=== PATIENT | male | born 1965 | race Caucasian/White ===

== ENCOUNTER 2020-11-11 08:44 | Outpatient (REF) | payer OTHER, SELFPAY ==
[2020-11-11 09:59] LABS: Alanine Aminotransferase 29 U/L (0-40); Albumin Level 4.5 g/dL (3.5-5.0); Alkaline Phosphatase 54 U/L (39-117); Anion Gap 13 (12-20); Aspartate Amino Transferase 27 U/L (5-37); Blood Urea Nitrogen 27 mg/dL (9-16); Calcium 9.4 mg/dL (8.4-10.2); Carbon Dioxide 29 mmol/L (22-29); Chloride 103 mmol/L (96-108); Cholesterol 139 mg/dL; Estimated Glomerular Filt Rate > 60; Glucose Fasting 84 mg/dL (60-99); HDL Cholesterol 46 mg/dL; LDL Cholesterol Calculated 84 mg/dl; Potassium 4.6 mmol/l (3.3-5.1); Sodium 140 mmol/L (135-145); Total Protein 7.3 g/dL (6.5-8.0); Triglycerides 46 mg/dL
[2020-11-11 10:20] LABS: TSH reflex Free T4 1.84 mIU/mL (0.32-4.0)
== END 2020-11-11 08:45 | disposition home or self-care (01) ==
LOC: HO.LAB 08:44
PROVIDERS: PCP Nurse Practitioner Family; Visit Provider Nurse Practitioner Family
DX: I10 Essential (primary) hypertension (principal); E78.5 Hyperlipidemia, unspecified
CPT/HCPCS: 36415; 80053; 80061; 84443

== ENCOUNTER 2023-06-21 13:11 | Outpatient (AMB) | payer OTHER, SELFPAY ==
--- NOTE | 2023-06-21 13:16 | MHC.PC.OV ---
Vital Signs 06/21/23 13:17 Height 5 ft 7 in Weight 213 lb 8 oz BMI 33.4 BP 150/104 H Blood Pressure Location Lt brachial Position Sitting Pulse 73 Pulse Source Pulse Oximeter Pulse Oximetry (%) 98 Oxygen Delivery Method Room Air Intake Visit Reasons: health follow up Allergies No Known Allergies Allergy (Verified 06/21/23 13:20) Medication List - Last Reconciled 06/21/23 by DUNG Hernandez- atorvastatin 10 mg PO DAILY 90 days chlorthalidone 25 mg PO DAILY cholecalciferol (vitamin D3) 50 mcg PO DAILY lisinopril 5 mg PO DAILY sildenafil 100 mg PO DAILY PRN Tobacco use date assessed: 06/21/23 Dental Screening Dental Screen Date: 06/21/23 Did you have a dental visit in the last 12 months?: No Did you have a dental problem in the last 6 months where you did not have access to dental care?: No Was dental information given to patient?: Patient has dentist HPI health follow up HPI Details Pt is here for a PE. Due for colon screen, will refer to GI. Due for PSA, will order. Denies dribbling with urination and nocturia, does report weak stream. HTN: Blood pressure is elevated. He is no longer taking his blood pressure medication because he has not been seen since 2019. Will restart lisinopril 5mg and chlorthalidone 25mg. Pt will monitor his BP at home and contact me if it remains elevated. Denies chest pain, shortness of breath, headache, dizziness, and blurred vision. Pt also needs refills of his atorvastatin and sildenafil, will send. [facility] Social History Housing: Apartment Patient Tobacco Use Status: Former Tobacco user Quit Date: quit 12 years ago Tobacco use type: Cigarette e-Cigarette/Vaping Use: Never Used Second Hand Smoke Exposure: No service: No Current occupational status: employed Current occupation: [employer] Current occupational exposures/hazards: No Cognitive needs: No Hearing needs: No Vision needs: No Questionnaire PHQ-9 Over the last 2 weeks, how often have you been bothered by any of the following problems? 88192 - PHQ-9 Billing: Patient declined-do not bill Source: Developed by Drs. Milton Monte, Hermila Nunez, Damian Leone and colleagues, with an educational bradley from [employer] Thrive Questionnaire Date Thrive assessed: 06/21/23 I am a: Patient What is your living situation today?: I choose not to answer this question Within the past 12 months, did the food you bought not last and you didn't have the money to get more?: I choose not to answer this question Within the past 12 months, did you worry whether your food would run out before you got money to buy more?: I choose not to answer this question Do you have trouble paying for medicines?: I choose not to answer this question Do you have trouble getting transportation to medical appointments?: I choose not to answer this question Do you have trouble paying your heating and electricity bill?: I choose not to answer this question Do you have trouble taking care of your child, family member or friend?: I choose not to answer this question Do you have trouble with day-to-day activities such as bathing, preparing meals, shopping, managing finances, etc.?: I choose not to answer this question Are you currently unemployed and looking for a job?: I choose not to answer this question Are you interested in more education?: I choose not to answer this question Currently or been in a relationship where the following occur: I choose not to answer this question AUDIT C Alcohol Use Questionnaire (AUDIT-C) 1. How often do you have a drink containing alcohol?: Monthly or less 2. How many drinks containing alcohol do you have on a typical day when you are drinking?: 1 or 2 3. How often do you have six or more drinks on one occasion?: Never Total Score: 1 Score Reviewed/Action Taken: Yes SHY-7 AMB Questionnaire SHY-7 Date SHY - 7 assessed: 06/21/23 Source: Developed by Drs. Milton Monte, Hermila Nunez, Damian Leone and colleagues, with an educational bradley from [employer]. SHY-7 Assessment Billing SHY-7 Assessment Tool: pt declined-do not bill Review of Systems Const Denies chills and Denies fever(s) Eyes Denies blurry vision ENT Denies vertigo, Denies dizziness and Denies sore throat Card Denies chest pain at rest, Denies chest pain with activity, Denies diaphoresis, Denies dyspnea and Denies dyspnea on exertion Resp Denies cough, Denies dyspnea, Denies dyspnea on exertion and Denies wheezing GI Denies abdominal pain, Denies melena, Denies hematochezia, Denies constipation, Denies diarrhea and Denies loose stools Denies hematuria Musc Denies numbness and Denies tingling Skin/Breast Denies lesions Neuro Denies vertigo, Denies dizziness, Denies numbness and Denies tingling Psych Denies anxiety, Denies depression, Denies homicidal ideation, Denies suicidal ideation and Denies other (substance abuse) Aller/Immun Denies wheezing Physical exam (Primary Care) Vital Signs: Last Vital Signs Pulse 73 06/21/23 13:17 BP 150/104 H 06/21/23 13:17 Pulse Ox 98 06/21/23 13:17 Oxygen Delivery Method Room Air 06/21/23 13:17 BMI result Body Mass Index 33.4 Tobacco/Smoking Status: Tobacco use Status Tobacco use date assessed 06/21/23 06/21/23 13:26 Patient Tobacco Use Status Former Tobacco user 06/21/23 13:26 Tobacco use type Cigarette 06/21/23 13:26 e-Cigarette/Vaping Use Never Used 06/21/23 13:26 Thrive Assessment: Date of Thrive Assessment Date Thrive assessed 06/21/23 06/21/23 13:56 Currently or been in a relationship where the following occur: I choose not to answer this question Const General: cooperative Nutritional Appearance: obese Orientation/consciousness: patient oriented x3 HENMT Head: Yes normal to inspection, Yes normocephalic and Yes atraumatic Ears: TM's normal bilaterally Eyes General: appearance normal, both eyes and all related structures Alignment and Position: alignment normal and position normal Neck Neck: Yes normal visual inspection and Yes no lymphadenopathy Thyroid: Thyroid normal Resp Effort & Inspection: normal respiratory effort Auscultation: clear to auscultation bilaterally Cardio Rate: regular rate Rhythm: regular rhythm Heart sounds: S1 normal heart sound present, S2 normal heart sound present and no murmurs GI Palpation (GI): Soft to palpation and nontender Auscultation: normal bowel sounds Other: PRATEEK: prostate slightly enlarged, no nodules palpated Male General Exam: Yes normal external exam Penis: normal penis Scrotum: scrotum normal, testes descended bilaterally and no inguinal hernias Testes: no testicular mass Skin Rashes: no rashes Neuro General: patient oriented x3, moves all extremities, no focal motor deficits and deep tendon reflexes 2+ bilaterally Romberg Test: Negative Psych Appearance: grossly normal Mental Status: mental status grossly normal Speech and movement: Normal speech and movement present Affect: normal affect Attitude: cooperative Thought process: Normal thought process present Thought content: Normal thought content present Insight: Good insight present (Psych) Judgement: Good judgement present (Psych) Assessment and Plan Assessment & Plan (1) Screening for prostate cancer: Code(s): Z12.5 - Encounter for screening for malignant neoplasm of prostate Plan: PSA ordered (2) Screening for colon cancer: Code(s): Z12.11 - Encounter for screening for malignant neoplasm of colon Plan: Referred to GI Plan The patient agreed to the use of a medical billing coder for this encounter. Scribed for VINAYAK Jara by Ellen Paredes medical billing coder, on 06/21/2023 at 13:30 EST. Orders: Orders Comprehensive [place]. Panel Fast Today Z00.00 - Encounter for general adult medical examination without abnormal findings Lipid Panel Today Z00.00 - Encounter for general adult medical examination without abnormal findings TSH reflex Free T4 Today Z00.00 - Encounter for general adult medical examination without abnormal findings Complete Blood Count Auto Diff Today Z00.00 - Encounter for general adult medical examination without abnormal findings UA CC w/rflx Micro + Cult Today Z00.00 - Encounter for general adult medical examination without abnormal findings Prostate Specific Antigen Scr Today Z12.5 - Encounter for screening for malignant neoplasm of prostate Referrals Gastroenterology Referral Z12.11 - Encounter for screening for malignant neoplasm of colon Medications: New lisinopril 5 mg PO DAILY 90 tabs 1RF chlorthalidone 25 mg PO DAILY 90 tabs 1RF sildenafil administer 30 minutes to 4 hours before activity 100 mg PO DAILY PRN 30 tabs 0RF sexual activity Refilled atorvastatin 10 mg PO DAILY 90 tabs 1RF 90 days Coding Level of Care Code Est Pt Prev Care 40-64y(20108) Diagnoses Screening for prostate cancer Z12.5 Screening for colon cancer Z12.11
[2023-06-21 13:17] VITALS: BP 150/104; PULSE 73; O2SAT 98; BMI 33.4
== END 2023-06-21 13:50 | disposition home or self-care (01) ==
PROVIDERS: Visit Provider Nurse Practitioner Family
DX: Z00.00 Encounter for general adult medical examination without abnormal findings (principal); Z12.5 Encounter for screening for malignant neoplasm of prostate; Z12.11 Encounter for screening for malignant neoplasm of colon
CPT/HCPCS: 99396

== ENCOUNTER 2023-07-06 10:41 | Outpatient (REF) | payer OTHER, SELFPAY ==
[2023-07-06 13:22] LABS: MANUAL DIFF FLAG NO
[2023-07-06 13:45] LABS: Basophils Absolute Auto 0.1 X10*3/uL (0.0-0.2); Basophils Percent Auto 0.8 % (0-2); Eosinophils Absolute Auto 0.4 X10*3/uL (0.0-0.4); Eosinophils Percent Auto 5.9 % (0-4); Hemoglobin 14.9 g/dl (14.0-18.0); Imm Gran Abs Auto 0.02 X10*3/uL (0.00-0.03); Imm Gran Pct Auto 0.3 % (0.0-0.4); Lymphocytes Absolute Auto 2.1 X10*3/uL (1.2-4.9); Mean Corpuscular HGB Conc 33.9 g/dl (31.0-36.0); Mean Corpuscular Hemoglobin 30.5 pg (27.0-33.0); Mean Platelet Volume 11.6 fL (9.4-12.4); Monocytes Absolute Auto 0.5 X10*3/uL (0.1-1.2); Monocytes Percent Auto 7.4 % (2-11); Neutrophils Absolute Auto 3.5 x10*3/uL (2.0-8.3); Neutrophils Percent Auto 53.6 % (45-73); Platelet Count 240 X10*3/uL (160-400); Red Blood Count 4.89 X10*6/uL (4.60-5.80); Red Cell Distribution Width 13.4 % (11.0-16.0); White Blood Count 6.5 X10*3/uL (4.8-10.8)
[2023-07-06 14:21] LABS: Appearance Urine Hazy; Color Urine Yellow; Glucose Urine UA Negative (Negative); Leukocyte Esterase Urine Negative (Negative); Nitrite Urine Negative (Negative); PH 5.5 (5.0-9.0); Specific Gravity - Urine >= 1.030 (1.005-1.025); UMIC TRIGGER UACC YES; Urine Blood Trace (Negative); Urine Ketones Negative (Negative); Urine Protein Negative (Neg-Trace)
[2023-07-06 14:29] LABS: Alanine Aminotransferase 25 U/L (0-40); Albumin Level 3.9 g/dL (3.5-5.0); Alkaline Phosphatase 54 U/L (39-117); Anion Gap 11 (12-20); Aspartate Amino Transferase 20 U/L (5-37); Bilirubin Total 0.5 mg/dL (0.0-1.0); Blood Urea Nitrogen 23 mg/dL (9-16); Calcium 9.3 mg/dL (8.4-10.2); Carbon Dioxide 26 mmol/L (22-29); Chloride 108 mmol/L (96-108); Cholesterol 134 mg/dL (<200); Estimated Glomerular Filt Rate > 60; Glucose Fasting 111 mg/dL (60-99); HDL Cholesterol 40 mg/dL (>40); LDL Cholesterol Calculated 79 mg/dL (<100); Potassium 3.9 mmol/L (3.3-5.1); Sodium 141 mmol/L (135-145); TSH reflex Free T4 2.68 uIU/mL (0.32-4.0); Total Protein 6.6 g/dL (6.5-8.0); Triglycerides 75 mg/dL (<150)
[2023-07-06 14:31] LABS: Prostate Specific Antigen Scr 5.69 ng/mL (<0.05-4.0)
[2023-07-06 15:20] LABS: Bacteria Urine None Seen (None Seen); Hyaline Casts Urine 0-2 /LPF (0-2); RBC Urine 0-2 /HPF (0-2); Squamous Epithelial Cell Urine 0-2 /HPF (0-2); WBC Urine 0-5 /HPF (0-5)
== END 2023-07-06 10:42 | disposition home or self-care (01) ==
LOC: HO.HMGCLDS 10:41
PROVIDERS: PCP Nurse Practitioner Family; Visit Provider Nurse Practitioner Family
DX: Z00.00 Encounter for general adult medical examination without abnormal findings (principal); Z12.5 Encounter for screening for malignant neoplasm of prostate; Z13.29 Encounter for screening for other suspected endocrine disorder; Z13.0 Encounter for screening for diseases of the blood and blood-forming organs and certain disorders involving the immune mechanism; Z13.220 Encounter for screening for lipoid disorders
CPT/HCPCS: 36415; 80053; 80061; 81001; 84153; 84443; 85025

== ENCOUNTER 2023-09-19 14:54 | Outpatient (AMB) | payer OTHER, SELFPAY ==
--- NOTE | 2023-09-19 15:12 | MHC.OFFVIS ---
Intake Intake Visit Reasons: Elevated PSA Intake Note: NEW Patient presents today to established treatment for Elevated PSA: Meds- Sildenafil Allergies to Antibiotic- No Known Allergies Blood Thinner- None PSA Results- 5.69 ng/mL PVR- 0 mL Morgue Keeper Required: No Accompanied by: Self / Same As Patient Allergies anesthesia Adverse Reaction (Uncoded 10/05/23 08:26) Unknown HPI HPI Comments History of Present Illness Details Boris is a 57-year-old male who presents today to the office to establish as a new patient for an evaluation of elevated PSA. 09/19/2023? He is present today for an evaluation of elevated PSA. Laboratory review ? PSA ? 02/04/2020 was 4.08 ng/mL and on 07/06/2023 was 5.69 ng/mL. Patient states that in terms of LUTS of prostatitis he feels that the symptoms are improved on tamsulosin. Patient states that he is also concerned about a lump on the shaft of his penis. Examination: currently no abnormal findings noted on genitalia. Prostate examination: smooth, moderately enlarged prostate. Plan: Repeat PSA US retroperitoneum Follow-up in 7 weeks. PFSH Surgical History (Reviewed 10/05/23 @ 12:41 by Shimon Mukherjee [facility]) Hx of colonoscopy Social History Housing: Apartment Patient Tobacco Use Status: Former Tobacco user Quit Date: quit 12 years ago Tobacco use type: Cigarette e-Cigarette/Vaping Use: Never Used Second Hand Smoke Exposure: No service: No Current occupational status: employed Current occupation: [employer] Current occupational exposures/hazards: No Cognitive needs: No Hearing needs: No Vision needs: No Review of Systems Const All systems reviewed & are unremarkable except as noted in HPI and below Reports no additional complaints Eyes Reports no additional complaints ENT Reports no additional complaints Card Denies dyspnea Resp Denies cough and Denies dyspnea GI Reports no additional complaints Musc Reports no additional complaints Skin/Breast Denies rash and Denies unusual bruising Neuro Reports no additional complaints Psych Reports no additional complaints Endo Reports no additional complaints Esdras/Lymph Reports no additional complaints Aller/Immun Reports no additional complaints Physical Exam Const General: healthy appearing, no acute distress and well developed Orientation/consciousness: patient oriented x3 HEENT Head: Yes normocephalic and Yes atraumatic Eyes Conjunctivae: conjunctivae normal Neck Neck: Yes normal visual inspection Chest Chest palpation & inspection: normal inspection of the chest Resp Effort & Inspection: normal respiratory effort Cardio Rate: regular rate GI Inspection: Yes normal to inspection Palpation (GI): Soft to palpation Other: Prostate Exam: smooth, moderately enlarged prostate. Penis: normal penis Scrotum: scrotum normal Skin General skin exam: no rashes or lesions noted Neuro General: patient oriented x3 Extrem General: No pedal edema Psych Appearance: grossly normal Affect: normal affect Office Procedures Post Void Residual Post Residual Void Post Void Residual (PVR): 0 [id number] Void Residual by ultrasound Results AMB Urinalysis, Automated UA Leukoctes 0 Mile/uL Last Edit by TOSIN Thakur on 09/19/23 15:36 UA Nitrite Negative Last Edit by Gerardo Reyes [facility] on 09/19/23 15:36 UA Urobilinogen 0 mg/dL Last Edit by Gerardo Reyes Cortney on 09/19/23 15:36 UA Protein 15 mg/dL Last Edit by Gerardo Reyes [facility] on 09/19/23 15:36 UA pH 6.0 Last Edit by Gerardo Reyes [facility] on 09/19/23 15:36 UA Blood 0 Justin/uL Last Edit by Gerardo Reyes [facility] on 09/19/23 15:36 UA Specific Pinole 1.030 Last Edit by Gerardo Reyes [facility] on 09/19/23 15:36 UA Ketone Negative Last Edit by Gerardo Reyes Cortney on 09/19/23 15:36 UA Bilirubin 0 mg/dL Last Edit by Gerardo Reyes [facility] on 09/19/23 15:36 UA Glucose 0 mg/dL Last Edit by Gerardo Reyes [facility] on 09/19/23 15:36 Results Reviewed Results Reviewed: Laboratory Last Values Urine pH (Auto) 6.0 09/19/23 15:34 Specific Pinole (Auto) 1.030 09/19/23 15:34 Urine Protein (Auto) 15 mg/dL 09/19/23 15:34 Glucose (UA)(Auto) 0 mg/dL 09/19/23 15:34 Urine Ketones (Auto) Negative 09/19/23 15:34 Urine Blood (Auto) 0 Justin/uL 09/19/23 15:34 Urine Nitrite (Auto) Negative 09/19/23 15:34 Urine Bilirubin (Auto) 0 mg/dL 09/19/23 15:34 Urine Urobilinogen (Auto) 0 mg/dL 09/19/23 15:34 Leukocyte Esterase (Auto) 0 Mile/uL 09/19/23 15:34 Assessment & Plan Assessment & Plan (1) Elevated PSA: Code(s): R97.20 - Elevated prostate specific antigen [PSA] (2) Screening for prostate cancer: Code(s): Z12.5 - Encounter for screening for malignant neoplasm of prostate (3) BPH (benign prostatic hyperplasia): Code(s): N40.0 - Benign prostatic hyperplasia without lower urinary tract symptoms Plan Repeat PSA US retroperitoneum Follow-up in 7 weeks. Orders: Orders AMB Urinalysis Automated 09/19/23 Z13.9 - Encounter for screening, unspecified AMB Post Void Residual by ultrasound 09/19/23 N39.8 - Other specified disorders of urinary system PSA,Total (Free>4and<10) 09/19/23 R97.20 - Elevated prostate specific antigen [PSA], Z12.5 - Encounter for screening for malignant neoplasm of prostate Patient Instructions: The patient had an opportunity to ask questions regarding treatment plan. All questions were answered. Imaging, Laboratory studies and physical exam results were discussed and reviewed in detail. No major barriers to understanding were identified. The patient expressed understanding and agreement with the above treatment plan. The patient is aware they should contact our office by phone for worsening of their current condition or the appearance of new symptoms. Compliance is encouraged with any medications and followup testing that is ordered. It is a privilege to be allowed the opportunity to participate in the urologic care of your patient. If you have any questions or concerns regarding treatment for the above conditions please do not hesitate to contact me. The office telephone contact is [phone]. This note is constructed in part using voice recognition software. While every effort has been made to ensure accuracy upholstery auto trimmer errors may have been included. Yours sincerely, Shant Styles MD Coding Level of Care Code New Pt Level 4 (18612) Diagnoses Elevated PSA R97.20 Screening for prostate cancer Z12.5 BPH (benign prostatic hyperplasia) N40.0 CPT Codes Post Residual Void - PVR CPT Code: 02046-[id number] Void Residual by ultrasound ([id number])
== END 2023-09-19 15:52 | disposition home or self-care (01) ==
PROVIDERS: PCP Nurse Practitioner Family; Visit Provider Urology
DX: R97.20 Elevated prostate specific antigen [PSA] (principal); Z12.5 Encounter for screening for malignant neoplasm of prostate; N40.0 Benign prostatic hyperplasia without lower urinary tract symptoms
CPT/HCPCS: 99204

== ENCOUNTER → 2023-09-19 14:54 | Outpatient (BNVA) | payer OTHER, SELFPAY | PROVIDERS: PCP Nurse Practitioner Family; Visit Provider Urology | DX: R97.20 Elevated prostate specific antigen [PSA] (principal); Z12.5 Encounter for screening for malignant neoplasm of prostate | CPT/HCPCS: 51798; 81003 ==

== ENCOUNTER 2023-10-05 08:16 | Outpatient (AMB) | payer OTHER, SELFPAY ==
--- NOTE | 2023-10-05 08:22 | A.OFFPC_ITS ---
Vital Signs 10/05/23 08:25 Height 5 ft 7 in Weight 214 lb BMI 33.5 BP 112/82 Blood Pressure Location Rt brachial Position Sitting Pulse 57 Pulse Source Pulse Oximeter Pulse Oximetry (%) 98 Oxygen Delivery Method Room Air Intake Visit Reasons: 3 month f/u HTN Intake Note: Patient is here for HTN follow up. Allergies anesthesia Adverse Reaction (Uncoded 10/05/23 08:26) Unknown Medication List - Last Reconciled 10/05/23 by VINAYAK Hernandez atorvastatin 10 mg PO DAILY 90 days chlorthalidone 25 mg PO DAILY cholecalciferol (vitamin D3) 50 mcg PO DAILY lisinopril 5 mg PO DAILY sildenafil 100 mg PO DAILY PRN Tobacco use date assessed: 06/21/23 Dental Screening Dental Screen Date: 10/05/23 Did you have a dental visit in the last 12 months?: No Did you have a dental problem in the last 6 months where you did not have access to dental care?: No Was dental information given to patient?: Patient has dentist HPI 3 month f/u HTN HPI Details HTN: Blood pressure is managed with chlorthalidone 25mg and lisinopril 5mg. Pt has been taking his blood pressure at home and it is mostly stable with some elevated diastolic readings in the 90s. Will start amlodipine 2.5mg. Pt will continue to monitor his blood pressure at home, calling me if sustaining above 140/90. Denies chest pain, shortness of breath, headache, dizziness, and blurred vision. Pt is following up with urology. PFSH Surgical History Hx of colonoscopy Social History Housing: Apartment Patient Tobacco Use Status: Former Tobacco user Quit Date: quit 12 years ago Tobacco use type: Cigarette e-Cigarette/Vaping Use: Never Used Second Hand Smoke Exposure: No service: No Current occupational status: employed Current occupation: [email or web address] Current occupational exposures/hazards: No Cognitive needs: No Hearing needs: No Vision needs: No Questionnaire Thrive Questionnaire Date Thrive assessed: 06/21/23 AUDIT C Alcohol Use Questionnaire (AUDIT-C) 1. How often do you have a drink containing alcohol?: Never 3. How often do you have six or more drinks on one occasion?: Never Total Score: 0 Score Reviewed/Action Taken: No SHY-7 AMB Questionnaire SHY-7 Date SHY - 7 assessed: 06/21/23 Source: Developed by Drs. Milton Monte, Hermila Nunez, Damian Leone and colleagues, with an educational bradley from [employer]. Review of Systems Const Reports as per HPI Physical exam (Primary Care) Vital Signs: Last Vital Signs Pulse 57 10/05/23 08:25 BP 112/82 10/05/23 08:25 Pulse Ox 98 10/05/23 08:25 Oxygen Delivery Method Room Air 10/05/23 08:25 BMI result Body Mass Index 33.5 Tobacco/Smoking Status: Tobacco use Status Tobacco use date assessed 06/21/23 10/05/23 08:23 Patient Tobacco Use Status Former Tobacco user 10/05/23 08:23 Tobacco use type Cigarette 10/05/23 08:23 e-Cigarette/Vaping Use Never Used 10/05/23 08:23 Thrive Assessment: Date of Thrive Assessment Date Thrive assessed 06/21/23 10/05/23 08:23 Const General: cooperative Nutritional Appearance: obese Orientation/consciousness: patient oriented x3 Resp Effort & Inspection: normal respiratory effort Auscultation: clear to auscultation bilaterally Cardio Rate: regular rate Rhythm: regular rhythm Heart sounds: S1 normal heart sound present and S2 normal heart sound present Neuro General: patient oriented x3 Extrem Right lower extremity: no edema Left lower extremity: no edema Psych Appearance: grossly normal Mental Status: mental status grossly normal Speech and movement: Normal speech and movement present Affect: normal affect Attitude: cooperative Thought process: Normal thought process present Thought content: Normal thought content present Insight: Good insight present (Psych) Judgement: Good judgement present (Psych) Assessment and Plan Assessment & Plan (1) HTN (hypertension): Code(s): I10 - Essential (primary) hypertension Plan: Starting amlodipine Plan The patient agreed to the use of a adjunct faculty for medical terminology for this encounter. Scribed for VINAYAK Jara by Ellen Paredes adjunct faculty for medical terminology, on 10/05/2023 at 08:50 EST. Orders: Orders Complete Blood Count Auto Diff Today I10 - Essential (primary) hypertension Comprehensive [place]. Panel Fast Today I10 - Essential (primary) hypertension Lipid Panel Today I10 - Essential (primary) hypertension TSH reflex Free T4 Today I10 - Essential (primary) hypertension Medications: New amlodipine 2.5 mg PO DAILY 90 tabs 0RF 90 days Coding Level of Care Code Est Pt Level 3 (52673) Diagnoses HTN (hypertension) I10
[2023-10-05 08:25] VITALS: BP 112/82; PULSE 57; O2SAT 98; BMI 33.5
== END 2023-10-05 09:11 | disposition home or self-care (01) ==
PROVIDERS: PCP Nurse Practitioner Family; Visit Provider Nurse Practitioner Family
DX: I10 Essential (primary) hypertension (principal)
CPT/HCPCS: 99213

== ENCOUNTER 2023-11-14 13:44 | Outpatient (REF) | payer OTHER, SELFPAY ==
--- NOTE | ~2023-11-14 | US_ITS ---
EXAMINATION: US RETROPERITONEAL COMPLETE (RENAL) CLINICAL INFORMATION: Elevated prostate specific antigen. COMPARISON: None available. TECHNIQUE: Real-time imaging of the kidneys and bladder. Limited visualization due to bowel gas. FINDINGS: RIGHT KIDNEY: 10.9 x 5.2 x 5.7 cm (SAG x AP x TRV). No hydronephrosis. No renal calculi. Renal cortical thickness is normal. Limited visualization. LEFT KIDNEY: 11.3 x 5.1 x 4.9 cm (SAG x AP x TRV). No hydronephrosis. No renal calculi. Renal cortical thickness is normal. Limited visualization. BLADDER: Partially distended. Bilateral ureteral jets are demonstrated. Prevoid bladder volume is 200 mL. Postvoid bladder volume is 16 mL. ADDITIONAL FINDINGS: Prostate volume 52 mL, enlarged. Echogenic foci characteristic of calcifications within the prostate. US/US retroperitoneal comp IMPRESSION: 1. No hydronephrosis. No renal calculi. Limited visualization. 2. Prostate volume 52 mL, enlarged. Echogenic foci characteristic of calcifications within the prostate.
[2023-11-14 16:54] LABS: PSA,Total (Free>4and<10) 6.99 ng/mL (0.00-4.00)
[2023-11-17 10:44] LABS: Free Prostate Spec Ag 1.2 ng/mL; Percent Free Prostate Spec Ag 18 % (calc) (>25); Prostate Specific Ag Total 6.6 ng/mL (< OR = 4.0)
== END 2023-11-14 13:45 | disposition home or self-care (01) ==
LOC: HO.HMGCX 13:44
PROVIDERS: PCP Nurse Practitioner Family; Visit Provider Urology
DX: Z12.5 Encounter for screening for malignant neoplasm of prostate (principal); R97.20 Elevated prostate specific antigen [PSA]
CPT/HCPCS: 36415; 76770; 84153; 84154

== ENCOUNTER 2023-11-25 11:13 | Outpatient (AMB) | payer OTHER, SELFPAY ==
--- NOTE | 2023-11-25 11:14 | A.OFFVIS_ITS ---
Intake Intake Visit Reasons: 7w/US/PSA (set) Intake Note: Patient presents today via phone to go over US & Labs reuslts: PSA Results- 6.99 ng/mL, 11/14/2023 Meds- Sildenafil Allergies to Antibiotic- No Known Allergies Blood Thinner- None PSA Privious Results- 5.69 ng/mL, 07/06/2023 Play Therapist Required: No Accompanied by: Self / Same As Patient Allergies anesthesia Adverse Reaction (Uncoded 10/05/23 08:26) Unknown HPI HPI Comments History of Present Illness Details Boris is a 58-year-old male who presents telehealth visit for elevated PSA. He was last seen on 09/19/2023. I am discussed in repeat PSA which is 6.99. I have discussed further evaluation with Transrectal Ultrasound guided biopsy of the prostate. Discussed risks to include but not limited to pain, blood in stool, urine and semen, septicemia, need to repeat biopsy. Discussed ultrasound retroperitoneum results--kidneys within normal limits estimated prostate volume 52 mL, prostatic calcifications noted. Review of chart-- 09/19/2023? He is present today for an evaluation of elevated PSA. Laboratory review ? PSA ? 02/04/2020 was 4.08 ng/mL and on 07/06/2023 was 5.69 ng/mL. Patient states that in terms of LUTS of prostatitis he feels that the symptoms are improved on tamsulosin. Patient states that he is also concerned about a lump on the shaft of his penis. Examination: currently no abnormal findings noted on genitalia. Prostate examination: smooth, moderately enlarged prostate. Plan:Repeat PSA, US retroperitoneum, Follow-up in 7 weeks. 11/25/2023--PLAN: prostate biopsy in minor OR, Cipro 500 mg b.i.d. for 5 days to start 24 hours prior to prostate biopsy. [facility] Surgical History Hx of colonoscopy Social History Housing: Apartment Patient Tobacco Use Status: Former Tobacco user Quit Date: quit 12 years ago Tobacco use type: Cigarette e-Cigarette/Vaping Use: Never Used Second Hand Smoke Exposure: No service: No Current occupational status: employed Current occupation: [employer] Current occupational exposures/hazards: No Cognitive needs: No Hearing needs: No Vision needs: No Review of Systems Const All systems reviewed & are unremarkable except as noted in HPI and below Reports no additional complaints Eyes Reports no additional complaints ENT Reports no additional complaints Card Denies dyspnea Resp Denies cough and Denies dyspnea GI Reports no additional complaints Musc Reports no additional complaints Skin/Breast Denies rash and Denies unusual bruising Neuro Reports no additional complaints Psych Reports no additional complaints Endo Reports no additional complaints Esdras/Lymph Reports no additional complaints Aller/Immun Reports no additional complaints Results Reviewed Results Reviewed: Date of Service: 11/14/23 EXAMINATION: US RETROPERITONEAL COMPLETE (RENAL) CLINICAL INFORMATION: Elevated prostate specific antigen. COMPARISON: None available. TECHNIQUE: Real-time imaging of the kidneys and bladder. Limited visualization due to bowel gas. FINDINGS: RIGHT KIDNEY: 10.9 x 5.2 x 5.7 cm (SAG x AP x TRV). No hydronephrosis. No renal calculi. Renal cortical thickness is normal. Limited visualization. LEFT KIDNEY: 11.3 x 5.1 x 4.9 cm (SAG x AP x TRV). No hydronephrosis. No renal calculi. Renal cortical thickness is normal. Limited visualization. BLADDER: Partially distended. Bilateral ureteral jets are demonstrated. Prevoid bladder volume is 200 mL. Postvoid bladder volume is 16 mL. ADDITIONAL FINDINGS: Prostate volume 52 mL, enlarged. Echogenic foci characteristic of calcifications within the prostate. IMPRESSION: 1. No hydronephrosis. No renal calculi. Limited visualization. 2. Prostate volume 52 mL, enlarged. Echogenic foci characteristic of calcifications within the prostate. Assessment & Plan Assessment & Plan (1) Elevated PSA: Code(s): R97.20 - Elevated prostate specific antigen [PSA] (2) Screening for prostate cancer: Code(s): Z12.5 - Encounter for screening for malignant neoplasm of prostate (3) BPH (benign prostatic hyperplasia): Code(s): N40.0 - Benign prostatic hyperplasia without lower urinary tract symptoms Plan SCHEDULE PROSTATE BIOPSY IN MINOR OR. Cipro 500 mg twice a day for 5 days start 1 day prior to prostate biopsy Patient Instructions: The patient had an opportunity to ask questions regarding treatment plan. All questions were answered. Imaging, Laboratory studies and physical exam results were discussed and reviewed in detail. No major barriers to understanding were identified. The patient expressed understanding and agreement with the above treatment plan. The patient is aware they should contact our office by phone for worsening of their current condition or the appearance of new symptoms. Compliance is encouraged with any medications and followup testing that is ordered. It is a privilege to be allowed the opportunity to participate in the urologic care of your patient. If you have any questions or concerns regarding treatment for the above conditions please do not hesitate to contact me. The office telephone contact is [phone]. This note is constructed in part using voice recognition software. While every effort has been made to ensure accuracy kindergarten assistant errors may have been included. Yours sincerely, Shant Styles MD Telehealth Telehealth Location of provider rendering services: practice address Location of patient: address on file Patient Identification confirmed using: Name, : Yes Telehealth method: voice only Patient verbally consented to treatment: Yes Patient verbally consented to billing insurance company: Yes Patient informed of any privacy concerns related to visit: Yes Minutes spent on Phone/Video with Pt.: 19 Coding Level of Care Code Tele Est Pt Level 4 (45774) Diagnoses Elevated PSA R97.20 Screening for prostate cancer Z12.5 BPH (benign prostatic hyperplasia) N40.0
== END 2023-11-25 12:00 | disposition home or self-care (01) ==
LOC: HO.HUSH 11:13
PROVIDERS: PCP Nurse Practitioner Family; Visit Provider Urology
DX: R97.20 Elevated prostate specific antigen [PSA] (principal); Z12.5 Encounter for screening for malignant neoplasm of prostate; N40.0 Benign prostatic hyperplasia without lower urinary tract symptoms
CPT/HCPCS: 99214

== ENCOUNTER → 2023-11-25 11:13 | Outpatient (BNVA) | payer OTHER, SELFPAY | PROVIDERS: PCP Nurse Practitioner Family; Visit Provider Urology ==

== ENCOUNTER 2024-02-07 09:38 | Day surgery (SDC) | payer OTHER, SELFPAY ==
[2024-02-07 11:33] VITALS: BMI 35.7
[2024-02-07 11:36] VITALS: BP 120/74; PULSE 76; RESP 16; TEMP 36.1; O2SAT 93
[2024-02-07] MEDS: levoFLOXacin 500 MG TABLET PO (11:45)
--- NOTE | 2024-02-07 12:15 | MHC.SHP ---
Pre-Procedural Eval Section A - 24 Hr Update-Section A only Date of Service: 02/07/24 The patient is an INPATIENT: No The patient has been examined within 24 hours of the surgical procedure. The History & Physical has been completed within 30 days and I have reviewed it.: Yes Section B - Complete if H&P > 30 days Chief Complaint: Elevated prostate specific antigen [PSA] Details of Present Illness: 58-year-old male with elevated PSA for prostate biopsy. Allergies: Allergies Allergy/AdvReac Type Severity Reaction Status Date / Time anesthesia AdvReac Unknown Uncoded 10/05/23 08:26 Review of Systems Review of Systems Comment: 10 point review of systems negative other than noted in HPI Exam Surgical H&P Exam: Normal: HEENT, Normal: Heart, Normal: Lungs, Normal: Abdomen and Normal: Skin Plan Diagnosis/Plan: Unchanged I have reviewed the history and physical and performed a pertinent physical examination on my patient. No changes have occurred unless specified. Transrectal ultrasound-guided prostate biopsy Time Spent With Patient Time: Total time managing care of this patient today ____ minutes.
[2024-02-07 13:00] VITALS: BP 163/81; PULSE 72; RESP 16; TEMP 36.1; O2SAT 97
--- NOTE | 2024-02-07 13:02 | W.PM.OPN ---
Operative Note Operative Note Date of Service: 02/07/24 Narrative: PreOperative Diagnosis:? ? Elevated PSA Post Operative Diagnosis:??Elevated PSA Procedure:?1. Transrectal ultrasound guided biopsy of the prostate 12 core 2. Transrectal ultrasound measurement of prostate 3. Transrectal ultrasound guided pudendal nerve block Surgeon:?Dr Shant Styles Anesthesia:? Local Indications for procedure: Elevated PSA Procedure: Preoperative antibiotics confirmed. After informed consent was verified the patient was placed on the procedure table in left lateral position. Patient identity confirmed. Safety pause time-out performed. Digital rectal exam performed to dilate rectal sphincter, iodine mixed with lubricant jelly 30 cc placed per rectum. Ultrasound probe was placed per rectum. The prostate was visualized. The prostate was measured width 5.06 cm, height 3.86 cm, length 4.57 cm with a volume of 46.7 mL. An ultrasound guided pudendal nerve block was performed using 10 cc of 1% lidocaine. A 12 core biopsy was performed from the left base, left mid, left apex and right base, mid, apex 2 biopsies from each section. The ultrasound probe was removed and digital palpation of the prostate for 1-2 minutes for hemostasis was performed. The patient tolerated the procedure well. Complications: None
== END 2024-02-07 13:26 | disposition home or self-care (01) ==
PROVIDERS: PCP Nurse Practitioner Family; Visit Provider Urology
PROC: (CPT 55700; principal; 2024-02-07 11:40)
DX: R97.20 Elevated prostate specific antigen [PSA] (principal); N40.0 Benign prostatic hyperplasia without lower urinary tract symptoms
CPT/HCPCS: 55700; 76942; 88305

== ENCOUNTER → 2024-02-07 09:38 | Outpatient (BNV) | payer OTHER, SELFPAY | PROVIDERS: PCP Nurse Practitioner Family; Visit Provider Urology | DX: R97.20 Elevated prostate specific antigen [PSA] (principal) | CPT/HCPCS: 55700; 76942 ==

== ENCOUNTER 2024-03-22 08:13 | Outpatient (AMB) | payer OTHER, SELFPAY ==
--- NOTE | 2024-03-22 08:14 | A.OFFVIS_ITS ---
Intake Visit Reasons: Prostate biopsy results Intake Note: Patient presents today for Biopsy Results: Meds- Sildenafil Allergies to Antibiotic- No Known Allergies Blood Thinner- None Chief Petroleum Engineer Required: No Accompanied by: Self / Same As Patient Allergies anesthesia Adverse Reaction (Uncoded 10/05/23 08:26) Unknown Medication List - Last Reconciled 03/22/24 by Shant Styles MD amlodipine 2.5 mg PO DAILY 90 days atorvastatin 10 mg PO DAILY 90 days chlorthalidone 25 mg PO DAILY cholecalciferol (vitamin D3) 50 mcg PO DAILY ciprofloxacin HCl (Cipro) 500 mg PO BID 4 days ciprofloxacin HCl 500 mg PO BID finasteride (Proscar) 5 mg PO DAILY 90 days lisinopril 5 mg PO DAILY sildenafil 100 mg PO DAILY PRN HPI Comments Details: 03/22/2024--Boris has been followed for elevated PSA and BPH. He had prostate biopsy done, 02/07/2024-results note benign prostate tissue. PSA 11/14/2023--6.99 ng/mL. Discussed Proscar 5 mg daily. Follow-up in 8 months PSA prior. Review of chart-- 11/25/2023-- Boris is a 58-year-old male who presents telehealth visit for elevated PSA. He was last seen on 09/19/2023. I am discussed in repeat PSA which is 6.99. I have discussed further evaluation with Transrectal Ultrasound guided biopsy of the prostate. Discussed risks to include but not limited to pain, blood in stool, urine and semen, septicemia, need to repeat biopsy. Discussed ultrasound retroperitoneum results--kidneys within normal limits estimated prostate volume 52 mL, prostatic calcifications noted. 09/19/2023? He is present today for an evaluation of elevated PSA. Laboratory review ? PSA ? 02/04/2020 was 4.08 ng/mL and on 07/06/2023 was 5.69 ng/mL. Patient states that in terms of LUTS of prostatitis he feels that the symptoms are improved on tamsulosin. Patient states that he is also concerned about a lump on the shaft of his penis. Examination: currently no abnormal findings noted on genitalia. Prostate examination: smooth, moderately enlarged prostate. Plan:Repeat PSA, US retroperitoneum, Follow-up in 7 weeks. [facility] Surgical History Hx of biopsy Hx of colonoscopy Social History Housing: Apartment Patient Tobacco Use Status: Former Tobacco user Quit Date: quit 12 years ago Tobacco use type: Cigarette e-Cigarette/Vaping Use: Never Used Second Hand Smoke Exposure: No service: No Current occupational status: employed Current occupation: [employer] Current occupational exposures/hazards: No Cognitive needs: No Hearing needs: No Vision needs: No Review of Systems Const All systems reviewed & are unremarkable except as noted in HPI and below Reports no additional complaints Eyes Reports no additional complaints ENT Reports no additional complaints Card Reports no additional complaints Resp Reports no additional complaints GI Reports no additional complaints Reports as per HPI Musc Reports no additional complaints Skin/Breast Reports system reviewed and no additional complaints, except as documented Neuro Reports no additional complaints Psych Reports no additional complaints Endo Reports no additional complaints Esdras/Lymph Reports no additional complaints Aller/Immun Reports no additional complaints Results Reviewed Results Reviewed: Collected: 02/07/24 Location: [facility] Received: 02/07/24 Diagnosis A: Left base lateral: Benign prostatic tissue; negative for malignancy. B: Left base medial: Benign prostatic tissue; negative for malignancy. C: Left mid lateral: Benign prostatic tissue; negative for malignancy. D: Left mid medial: Benign prostatic tissue; negative for malignancy. E: Left apex lateral: Benign prostatic tissue; negative for malignancy. F: Left apex medial: Benign prostatic tissue; negative for malignancy. G: Right base lateral: Benign prostatic tissue; negative for malignancy. H: Right base medial: Benign prostatic tissue; negative for malignancy. I: Right mid lateral: Benign prostatic tissue; negative for malignancy. J: Right mid medial: Benign prostatic tissue; negative for malignancy. K: Right apex lateral: Prostatic stroma only; no epithelium present; negative for malignancy. L: Right apex medial: Prostatic stroma only; no epithelium present; negative for malignancy. Clinical History Elevated PSA Date of Service: 11/14/23 EXAMINATION: US RETROPERITONEAL COMPLETE (RENAL) CLINICAL INFORMATION: Elevated prostate specific antigen. COMPARISON: None available. TECHNIQUE: Real-time imaging of the kidneys and bladder. Limited visualization due to bowel gas. FINDINGS: RIGHT KIDNEY: 10.9 x 5.2 x 5.7 cm (SAG x AP x TRV). No hydronephrosis. No renal calculi. Renal cortical thickness is normal. Limited visualization. LEFT KIDNEY: 11.3 x 5.1 x 4.9 cm (SAG x AP x TRV). No hydronephrosis. No renal calculi. Renal cortical thickness is normal. Limited visualization. BLADDER: Partially distended. Bilateral ureteral jets are demonstrated. Prevoid bladder volume is 200 mL. Postvoid bladder volume is 16 mL. ADDITIONAL FINDINGS: Prostate volume 52 mL, enlarged. Echogenic foci characteristic of calcifications within the prostate. IMPRESSION: 1. No hydronephrosis. No renal calculi. Limited visualization. 2. Prostate volume 52 mL, enlarged. Echogenic foci characteristic of calcifications within the prostate. Assessment & Plan Assessment & Plan (1) Elevated PSA: Code(s): R97.20 - Elevated prostate specific antigen [PSA] Category: Medical (2) Screening for prostate cancer: Code(s): Z12.5 - Encounter for screening for malignant neoplasm of prostate Category: Medical (3) BPH (benign prostatic hyperplasia): Code(s): N40.0 - Benign prostatic hyperplasia without lower urinary tract symptoms Category: Medical Plan Will start Proscar 5 mg daily. monitor PSA. Follow-up in 8 months PSA prior. Orders: Orders AMB Urinalysis Automated Today Z13.9 - Encounter for screening, unspecified Medications: New finasteride (Proscar) 5 mg PO DAILY 90 days 90 tabs 3RF Patient Instructions: The patient had an opportunity to ask questions regarding treatment plan. The patient expressed understanding and agreement with the above treatment plan. The patient is aware they should contact our office by phone for worsening of their current condition or the appearance of new symptoms. Compliance is encouraged with any medications and followup testing that is ordered. It is a privilege to be allowed the opportunity to participate in the urologic care of your patient. If you have any questions or concerns regarding treatment for the above conditions please do not hesitate to contact me. The office telephone contact is [phone]. This note is constructed in part using voice recognition software. While every effort has been made to ensure accuracy wastewater treatment supervisor errors may have been included. Yours sincerely, Shant Styles MD Coding Level of Care Code Est Pt Level 4 (70209) Diagnoses Elevated PSA R97.20 Screening for prostate cancer Z12.5 BPH (benign prostatic hyperplasia) N40.0
== END 2024-03-22 08:47 | disposition home or self-care (01) ==
PROVIDERS: PCP Nurse Practitioner Family; Visit Provider Urology
DX: R97.20 Elevated prostate specific antigen [PSA] (principal); Z12.5 Encounter for screening for malignant neoplasm of prostate; N40.0 Benign prostatic hyperplasia without lower urinary tract symptoms
CPT/HCPCS: 99214

== ENCOUNTER → 2024-03-22 08:13 | Outpatient (BNVA) | payer OTHER, SELFPAY | PROVIDERS: PCP Nurse Practitioner Family; Visit Provider Urology ==

== ENCOUNTER 2024-06-25 07:12 | Day surgery (SDC) | payer OTHER, SELFPAY ==
[2024-06-21 13:20] VITALS: BMI 34.7
--- NOTE | 2024-06-22 09:03 | HO.ANESPROP2 ---
HPI - Anesthesia Eval Consult details Narrative: 58yo M for Colonoscopy PMF Active Problems Active Problems: All Active Problems BPH (benign prostatic hyperplasia) (Acute) HTN (hypertension) (Acute) Elevated PSA (Acute) Screening for colon cancer (Acute) Screening for prostate cancer (Acute) Physical exam (Acute) Male erectile dysfunction, unspecified (Acute) Toenail fungus (Acute) Past Medical History Medical History Anesthesia complication Elevated cholesterol BPH (benign prostatic hyperplasia) HTN (hypertension) Surgical History Surgical History Hx of prostate biopsy Hx of excision of mass Hx of varicose vein ligation and stripping Hx of eye surgery Hx of colonoscopy Social History Social History Housing: Apartment Patient Tobacco Use Status: Former Tobacco user Tobacco use type: Cigarette e-Cigarette/Vaping Use: Never Used Second Hand Smoke Exposure: No service: No Current occupational status: employed Current occupation: [employer] Current occupational exposures/hazards: No Cognitive needs: No Hearing needs: No Vision needs: No Meds Allergies Allergy/AdvReac Type Severity Reaction Status Date / Time No Known Allergies Allergy Verified 07/02/24 13:41 Exam Height,Weight and Vital Signs: Height 5 ft 6 in Weight 97.522 kg Assessment and Plan Assessment Anesthesia Assessment: Chart Reviewed
[2024-06-25 07:50] VITALS: BMI 34.7
[2024-06-25 08:11] VITALS: BP 139/97; PULSE 64; RESP 16; TEMP 36.6; O2SAT 95
[2024-06-25] MEDS: Lactated Ringers 1,000 ML 100 ML IVCONT (08:12)
[2024-06-25 09:38] VITALS: BP 108/57; PULSE 58; RESP 16; TEMP 36.1; O2SAT 94
--- NOTE | 2024-06-25 09:49 | OP_ITS ---
DATE OF SERVICE: 06/25/2024 SURGEON: Milton Sanchez MD INDICATIONS: The patient presents for evaluation of personal history of a tubular adenoma of the colon, family history of colon cancer, colorectal cancer screening. Full consent was obtained from him for this, including risks of bleeding and perforation. PREOPERATIVE DIAGNOSIS: Colorectal cancer screening, family history of colon cancer, and history of tubular adenoma of the colon. POSTOPERATIVE DIAGNOSIS: Colorectal cancer screening, family history of colon cancer, and history of tubular adenoma of the colon, diverticulosis and internal hemorrhoids. PROCEDURE PERFORMED: Colonoscopy to cecum. ESTIMATED BLOOD LOSS: COMPLICATIONS: ANESTHESIA: Monitored anesthesia care. ASSISTANTS: SPECIMENS: DESCRIPTION OF PROCEDURE: The patient was placed in the left lateral decubitus position. The digital rectal exam revealed no abnormalities. The Olympus video pediatric colonoscope was entered into the rectum and advanced easily to the cecum. Once in the cecum, I did identify normal-appearing cecal pouch with appendiceal orifice and a normal-appearing ileocecal valve. The entire cecum and ileocecal valve appeared normal. The scope was slowly withdrawn assessing all mucosal surfaces carefully. Preparation was excellent. I did not visualize any sign of polyps, colitis, nor angiodysplasia. There was a mild amount of sigmoid diverticulosis. In the rectum, scope was retroflexed visualizing small internal hemorrhoids, but no other pathology. The rectal mucosa appeared normal. Scope was straightened and withdrawn from the patient. He tolerated the procedure well and was returned to the recovery area in stable condition. IMPRESSION: 1. Diverticulosis. 2. Internal hemorrhoids. PLAN: Given his family history and his own history of a tubular adenoma, I would recommend a followup coloscopy in 5 years. He will otherwise see me on a p.r.n. basis. MD GABO Nevarez/ERNIEL / [phone]
[2024-06-25 09:53] VITALS: BP 106/69; PULSE 52; RESP 16; O2SAT 96
[2024-06-25 10:08] VITALS: BP 115/73; PULSE 47; RESP 16; O2SAT 96
[2024-06-25 10:23] VITALS: BP 105/64; PULSE 45; RESP 16; TEMP 36.1; O2SAT 96
--- NOTE | 2024-06-25 10:44 | PM.OP ---
Brief Operative Note Date of Service: 06/25/24 Pre-op diagnosis: Screening Post-op diagnosis: other (Diverticulosis) Procedure: Colonoscopy to the cecum Surgeon: Milton Sanchez MD Anesthesia: MAC Was an Auto Mechanic Apprentice used for this Procedure?: No Estimated blood loss (mL): 0 Pathology: none sent Condition: stable Disposition: PACU
== END 2024-06-25 10:47 | disposition home or self-care (01) ==
PROVIDERS: PCP Nurse Practitioner Family; Visit Provider Internal Medicine
PROC: 0DJD8ZZ Inspection of Lower Intestinal Tract, Via Natural or Artificial Opening Endoscopic (ICD-10-PCS; CPT 45378; principal; 2024-06-25 08:30)
DX: Z12.11 Encounter for screening for malignant neoplasm of colon (principal); K57.30 Diverticulosis of large intestine without perforation or abscess without bleeding; K64.8 Other hemorrhoids; I10 Essential (primary) hypertension; Z86.010 Personal history of colon polyps; Z80.0 Family history of malignant neoplasm of digestive organs
CPT/HCPCS: 45378; J1200; J2250; J2704

== ENCOUNTER 2024-07-02 13:32 | Outpatient (AMB) | payer OTHER, SELFPAY ==
--- NOTE | 2024-07-02 13:40 | A.OFFPC_ITS ---
Vital Signs 07/02/24 13:41 Height 5 ft 6 in Weight 217 lb BMI 35.0 BP 112/62 Blood Pressure Location Rt brachial Position Sitting Pulse 56 Pulse Source Pulse Oximeter Pulse Oximetry (%) 96 Intake Visit Reasons: 9 Month F/U Intake Note: pt is here for 9 month follow up, last colonoscopy 06/2024 and prostate bx Dump Truck Driver Required: No Accompanied by: Self / Same As Patient Allergies No Known Allergies Allergy (Verified 07/02/24 13:41) Medication List - Last Reconciled 07/02/24 by VINAYAK Hernandez amlodipine 2.5 mg PO DAILY 90 days atorvastatin 10 mg PO DAILY 90 days chlorthalidone 25 mg PO DAILY cholecalciferol (vitamin D3) 50 mcg PO DAILY finasteride (Proscar) 5 mg PO DAILY 90 days lisinopril 5 mg PO DAILY sildenafil 100 mg PO DAILY PRN Tobacco use date assessed: 07/02/24 Dental Screening Dental Screen Date: 07/02/24 Did you have a dental visit in the last 12 months?: Yes Did you have a dental problem in the last 6 months where you did not have access to dental care?: No Was dental information given to patient?: Patient has dentist HPI 9 Month F/U HPI Details HTN: Blood pressure is stable, managed with amlodipine 2.5mg, chlorthalidone 25mg, and lisinopril 5mg. Pt reports that his blood pressure at home is stable. Denies chest pain, shortness of breath, headache, dizziness, and blurred vision. PFSH Medical History Anesthesia complication Elevated cholesterol BPH (benign prostatic hyperplasia) HTN (hypertension) Surgical History Hx of prostate biopsy Hx of excision of mass Hx of varicose vein ligation and stripping Hx of eye surgery Hx of colonoscopy Social History Housing: Apartment Patient Tobacco Use Status: Former Tobacco user Tobacco use type: Cigarette e-Cigarette/Vaping Use: Never Used Second Hand Smoke Exposure: No service: No Current occupational status: employed Current occupation: [employer] Current occupational exposures/hazards: No Cognitive needs: No Hearing needs: No Vision needs: No Questionnaire PHQ-9 Over the last 2 weeks, how often have you been bothered by any of the following problems? 1. Little interest or pleasure in doing things: not at all 2. Feeling down, depressed, or hopeless: not at all 3. Trouble falling or staying asleep, or sleeping too much: several days 4. Feeling tired or having little energy: not at all 5. Poor appetite or overeating: not at all 6. Feeling bad about yourself - or that you are a failure or have let yourself or your family down: not at all 7. Trouble concentrating on things, such as reading the newspaper or watching television: not at all 8. Moving or speaking so slowly that other people could have noticed. Or the opposite - being so fidgety or restless that you have been moving around a lot more than usual: not at all 9. Thoughts that you would be better off or of hurting yourself in some way: not at all Total score: 1 Depression Screening Interpretation: Negative Depression Screening Done: Yes 14880 - PHQ-9 Billing: Yes Source: Developed by Drs. Milton Monte, Hermila Nunez, Damian Leone and colleagues, with an educational bradley from [employer] Thrive Questionnaire Date Thrive assessed: 07/02/24 I am a: Patient What is your living situation today?: I have a steady place to live Within the past 12 months, did the food you bought not last and you didn't have the money to get more?: Never true Within the past 12 months, did you worry whether your food would run out before you got money to buy more?: Never true Do you have trouble paying for medicines?: No Do you have trouble getting transportation to medical appointments?: No Do you have trouble paying your heating and electricity bill?: No Do you have trouble taking care of your child, family member or friend?: No Do you have trouble with day-to-day activities such as bathing, preparing meals, shopping, managing finances, etc.?: No Are you currently unemployed and looking for a job?: No Are you interested in more education?: No Please select the resources that you would like help with: None Currently or been in a relationship where the following occur: No concerns reported THRIVE Score: 0 AUDIT C Alcohol Use Questionnaire (AUDIT-C) 1. How often do you have a drink containing alcohol?: Monthly or less 2. How many drinks containing alcohol do you have on a typical day when you are drinking?: 1 or 2 3. How often do you have six or more drinks on one occasion?: Never Total Score: 1 Score Reviewed/Action Taken: Yes SHY-7 AMB Questionnaire SHY-7 Date SHY - 7 assessed: 07/02/24 Feeling nervous, anxious, or on edge: 0 = Not at all Not being able to stop or control worryin = Not at all Worrying too much about different things: 0 = Not at all Trouble relaxin = Not at all Being so restless that it is hard to sit still: 0 = Not at all Becoming easily annoyed or irritable: 0 = Not at all Feeling afraid as if something awful might happen: 0 = Not at all Total SHY-7 score (0-4 normal; 5-9 mild; 10-14 moderate; 15-21 severe): 0 Source: Developed by Drs. Milton Monte, Hermila Nunez, Damian Leone and colleagues, with an educational bradley from [employer] SHY-7 Assessment Billing SHY-7 Assessment Tool: SHY-7 Assessment 80157 Review of Systems Const Reports as per HPI Physical exam (Primary Care) Vital Signs: Last Vital Signs Pulse 56 07/02/24 13:41 BP 112/62 07/02/24 13:41 Pulse Ox 96 07/02/24 13:41 BMI result Body Mass Index 35.0 Tobacco/Smoking Status: Tobacco use Status Tobacco use date assessed 07/02/24 07/02/24 13:42 Patient Tobacco Use Status Former Tobacco user 07/02/24 13:42 Tobacco use type Cigarette 07/02/24 13:42 e-Cigarette/Vaping Use Never Used 07/02/24 13:42 PHQ-9: PHQ-9 Score PHQ-9: Total score 1 07/02/24 14:15 Depression Screening Interpretation: Negative Thrive Assessment: Date of Thrive Assessment Date Thrive assessed 07/02/24 07/02/24 13:42 Currently or been in a relationship where the following occur: No concerns reported Const General: cooperative Nutritional Appearance: obese Orientation/consciousness: patient oriented x3 Resp Effort & Inspection: normal respiratory effort Auscultation: clear to auscultation bilaterally Cardio Rate: regular rate Rhythm: regular rhythm Heart sounds: S1 normal heart sound present and S2 normal heart sound present Neuro General: patient oriented x3 Psych Appearance: grossly normal Mental Status: mental status grossly normal Speech and movement: Normal speech and movement present Affect: normal affect Attitude: cooperative Thought process: Normal thought process present Thought content: Normal thought content present Insight: Good insight present (Psych) Judgement: Good judgement present (Psych) Assessment and Plan Assessment & Plan (1) HTN (hypertension): Code(s): I10 - Essential (primary) hypertension Plan: currently stable, recommended getting labs Plan The patient agreed to the use of a medical cash poster for this encounter. Scribed for VINAYAK Jara by Ellen Paredes medical cash poster, on 07/02/2024 at 14:10 EST. Orders: Orders Comprehensive [place]. Panel Fast Today Z00.00 - Encounter for general adult medical examination without abnormal findings Complete Blood Count Auto Diff Today Z00.00 - Encounter for general adult medical examination without abnormal findings TSH reflex Free T4 Today Z00.00 - Encounter for general adult medical exam ination without abnormal findings UA CC w/rflx Micro + Cult Today Z00.00 - Encounter for general adult medical examination without abnormal findings Lipid Panel Today Z00.00 - Encounter for general adult medical examination without abnormal findings Coding Level of Care Code Est Pt Level 3 (87839) Diagnoses HTN (hypertension) I10 Additional Codes SHY-7 Assessment Billing - SHY-7 Assessment Tool: SHY-7 Assessment 76954 ([id number])
[2024-07-02 13:41] VITALS: BP 112/62; PULSE 56; O2SAT 96; BMI 35.0
== END 2024-07-02 16:26 | disposition home or self-care (01) ==
PROVIDERS: PCP Nurse Practitioner Family; Visit Provider Nurse Practitioner Family
DX: I10 Essential (primary) hypertension (principal)
CPT/HCPCS: 99213

== ENCOUNTER 2024-09-05 12:51 | Outpatient (REF) | payer OTHER, SELFPAY ==
[2024-09-05 16:03] LABS: MANUAL DIFF FLAG NO
[2024-09-05 16:06] LABS: Basophils Percent Auto 0.6 % (0-2); Eosinophils Absolute Auto 0.3 X10*3/uL (0.0-0.4); Hematocrit 46.2 % (42.0-52.0); Hemoglobin 15.7 g/dl (14.0-18.0); Imm Gran Abs Auto 0.03 X10*3/uL (0.00-0.03); Imm Gran Pct Auto 0.5 % (0.0-0.4); Lymphocytes Absolute Auto 2.1 X10*3/uL (1.2-4.9); Lymphocytes Percent Auto 32.4 % (20-40); Mean Corpuscular Hemoglobin 30.9 pg (27.0-33.0); Mean Corpuscular Volume 90.9 fL (80.0-98.0); Mean Platelet Volume 11.2 fL (9.4-12.4); Monocytes Absolute Auto 0.6 X10*3/uL (0.1-1.2); Monocytes Percent Auto 9.7 % (2-11); Neutrophils Absolute Auto 3.3 x10*3/uL (2.0-8.3); Neutrophils Percent Auto 51.8 % (45-73); Platelet Count 249 X10*3/uL (160-400); Red Blood Count 5.08 X10*6/uL (4.60-5.80); Red Cell Distribution Width 13.3 % (11.0-16.0); White Blood Count 6.4 X10*3/uL (4.8-10.8)
[2024-09-05 16:31] LABS: Appearance Urine Clear; Color Urine Yellow; Glucose Urine UA Negative (Negative); Leukocyte Esterase Urine Negative (Negative); Nitrite Urine Negative (Negative); PH 5.5 (5.0-9.0); Specific Gravity - Urine 1.025 (1.005-1.025); Urine Blood Negative (Negative); Urine Ketones Negative (Negative); Urine Protein Negative (Neg-Trace)
[2024-09-05 17:11] LABS: Alanine Aminotransferase 65 U/L (0-40); Albumin Level 3.9 g/dL (3.5-5.0); Alkaline Phosphatase 66 U/L (39-117); Anion Gap 11 (12-20); Aspartate Amino Transferase 38 U/L (5-37); Bilirubin Total 0.4 mg/dL (0.0-1.0); Blood Urea Nitrogen 27 mg/dL (9-16); Calcium 9.5 mg/dL (8.4-10.2); Carbon Dioxide 24 mmol/L (22-29); Chloride 108 mmol/L (96-108); Cholesterol 164 mg/dL (<200); Estimated Glomerular Filt Rate 59; Glucose Fasting 127 mg/dL (60-99); HDL Cholesterol 35 mg/dL (>40); LDL Cholesterol Calculated 86 mg/dL (<100); Potassium 3.9 mmol/L (3.3-5.1); Sodium 139 mmol/L (135-145); Triglycerides 217 mg/dL (<150)
[2024-09-05 17:15] LABS: TSH reflex Free T4 3.17 uIU/mL (0.32-4.0)
== END 2024-09-05 12:52 | disposition home or self-care (01) ==
LOC: HO.HMGCLDS 12:51
PROVIDERS: PCP Nurse Practitioner Family; Visit Provider Nurse Practitioner Family
DX: Z00.00 Encounter for general adult medical examination without abnormal findings (principal)
CPT/HCPCS: 36415; 80053; 80061; 81003; 84443; 85025

== ENCOUNTER 2024-10-11 08:59 | Outpatient (REF) | payer OTHER, SELFPAY ==
--- NOTE | ~2024-10-11 | US_ITS ---
EXAMINATION: US COMPLETE ABDOMEN WITH LIVER ELASTOGRAPHY CLINICAL INFORMATION: Abnormal LFTs. COMPARISON: None available. TECHNIQUE: Real-time imaging of the abdominal viscera. Noninvasive ultrasound liver fibrosis assessment is performed using Orestes ElastPQ point quantification shear wave elastography (pSWE) with a C5-2 MHz transducer. Multiple elastography samples are obtained. Exam submitted for review 11/30/2024 10:03 AM [facility]. FINDINGS: PANCREAS: The visualized pancreatic head and body are normal in appearance. The remainder of the pancreas is obscured from visualization by the overlying bowel gas. ABDOMINAL AORTA: No aortic aneurysm is seen. INFERIOR VENA CAVA: Visualized portions are normal. LIVER: Liver is normal in size and contour. There is diffusely increased parenchymal echogenicity, suspect for fatty infiltration. There are foci of focal fatty sparing. No suspicious hepatic lesion. There is a small biliary cyst in the right hepatic lobe measuring 0.9 cm. The right lobe measures 13.9 cm in length. The left lobe measures 7.4 cm in length. Portal flow is hepatopedal. Shear wave liver elastography median stiffness is 1.3 m/s (reference: normal median stiffness is 1.3 m/s or less). IQR/median stiffness to assess sampling precision is 0.14 (reference: good quality data set is IQR/median stiffness of 0.15 or less). GALLBLADDER: The gallbladder is physiologically distended without evidence of stones, sludge, polyps, wall thickening or pericholecystic fluid. COMMON BILE DUCT: Normal in caliber measuring 0.4 cm in diameter. RIGHT KIDNEY: No hydronephrosis. No renal calculi or focal parenchymal lesions. The kidney measures 10.2 cm in maximum dimension. LEFT KIDNEY: No hydronephrosis. No renal calculi or focal parenchymal lesions. The kidney measures 10.1 cm in maximum dimension. SPLEEN: Unremarkable. The spleen measures 11.3 cm in maximum dimension. FREE FLUID: None seen. US/US abdomen comp w elastography IMPRESSION: 1. Geographic fatty infiltration of the liver with regions of focal fatty sparing. No suspicious focal lesions. 2. Liver elastography: Measurements are consistent with a high probability of normal liver stiffness. 3. Remainder of the examination is normal. REFERENCE: Society of Radiologists in Ultrasound Liver Stiffness Thresholds (2020): LIVER STIFFNESS THRESHOLDS: *Liver Stiffness equal or less than 1.3 m/s: High probability of being normal. *Liver Stiffness less than 1.7 m/s: In the absence of other known clinical signs, rules out compensated advanced chronic liver disease. *Liver Stiffness 1.7-2.1 m/s: Suggestive of compensated advanced chronic liver disease but need further test for confirmation. *Liver Stiffness over 2.1 m/s: Rules in compensated advanced chronic liver disease. *Liver Stiffness over 2.4 m/s: Suggestive of clinically significant portal hypertension. QUALITY OF DATA SET: *IQR/Median value equal or less than 0.15 implies a quality data set. *IQR/Median value over 0.15 implies a poor quality data set. SIGNIFICANT CHANGE FROM PRIOR EXAM: Significant change if liver stiffness measurement is 10% or greater from prior exam. OTHER CONSIDERATIONS: The stage of liver fibrosis may be overestimated in the setting of acute hepatitis, liver inflammation, elevated liver function tests, hepatic vascular congestion, obstructive cholestasis, non-fasting state, and infiltrative diseases such as amyloidosis and lymphoma. In some patients with NAFLD, the liver stiffness thresholds for compensated advanced chronic liver disease may be lower. In causes other than viral hepatitis and NAFLD, liver stiffness thresholds are not well established. Electronically signed by: Gatito Sewell MD 11/30/2024 11:03 AM [facility]
--- OUTSIDE RECORDS SUMMARY | 2024-10-17 00:35 | XMS_ITS ---
Author Organization [facility] Address [address] [place] [address] Care Team Providers Care Consolidation Accountant Name Role Phone ALAN HENDRICKSON Primary Care Provider Milton Jimenez [phone] REASON FOR VISIT screening,hx polyps,fam hx colon ca Encounters Encounter Location Date Provider Diagnosis [facility] [place] [address] [place] [phone] 03/12/2024 Milton Sanchez PLAN OF TREATMENT No Information
--- OUTSIDE RECORDS SUMMARY | 2024-10-17 00:35 | XMS_ITS ---
Author Organization [facility] Address [address] [place] [address] Care Team Providers Care Aquatic Director Name Role Phone ALAN HENDRICKSON Primary Care Provider Milton Jimenez [phone] REASON FOR VISIT r/s colonoscopy march 12 Encounters Encounter Location Date Provider Diagnosis [facility] [address] [place] [address] 03/06/2024 Milton Sanchez PLAN OF TREATMENT No Information
--- OUTSIDE RECORDS SUMMARY | 2024-10-17 00:35 | XMS_ITS ---
Author Organization [facility] Address [address] [place] [address] Care Team Providers Care Farm Tractor Mechanic Name Role Phone ALAN HENDRICKSON Primary Care Provider Milton Jimenez [phone] REASON FOR VISIT screening,hx polyps ,fm hx colon ca PROBLEMS Problem Type ICD Code Onset Dates Problem Status W/U Status Risk SNOMED Code Notes Problem Personal history of colonic polyps (Z86.010) Active confirmed History of polyp of colon (situation) (956407935) Problem Diverticulosis of large intestine without perforation or abscess without bleeding (K57.30) Active confirmed Diverticul ar disease of colon (450784016) Encounters Encounter Location Date Provider Diagnosis [facility] [place] [address] [place], [place] [phone] 06/25/2024 Milton Sanchez Colon cancer scree dulce Z12.11 ; Personal history of colonic polyps Z86.010 ; Diverticulosis of large intestine without perforation or abscess without bleeding K57.30 and Other hemorrhoids K64.8 ASSESSMENTS Encounter Date Diagnosis Assessment Notes Treatment Notes Treatment Clinical Notes 06/25/2024 Colon cancer screening (ICD-10 - Z12.11) 06/25/2024 Personal history of colonic polyps (ICD-10 - Z86.010) 06/25/2024 Diverticulosis of large intestine without perforation or abscess without bleeding (ICD-10 - K57.30) 06/25/2024 Other hemorrhoids (ICD-10 - K64.8) PLAN OF TREATMENT No Information
--- OUTSIDE RECORDS SUMMARY | 2024-10-17 00:35 | XMS_ITS | Patient Health Record ---
Author Organization [facility] Address [address] [place] [address] Care Team Providers Care Internal Salesperson Name Role Phone ALAN HENDRICKSON Primary Care Provider Milton Jimenez [phone] ALLERGIES No Known Allergies REASON FOR REFERRAL No Information MEDICATIONS Medication SIG (Take, Route, Frequency, Duration) Notes Start Date End Date Status amLODIPine Besylate 2.5 MG TAKE 1 TABLET BY MOUTH DAILY. Oral for 30 Active Atorvastatin Calcium 10 MG 1 tablet Oral ly Once a week Active Chlorthalidone 25 MG TAKE ONE TABLET BY MOUTH EVERY DAY Oral for 30 Active Vitamin D3 50 MCG (1999 UT) TAKE 1 TABLE T BY MOUTH DAILY. Oral for 30 Active Lisinopril 5 MG 1 tablet Orally Once a day Active SOCIAL HISTORY Tobacco Use: Social History Observation Description Date Details (start date - stop date) Former Smoker NA - NA Sex Assigned At : Social History Observation Description Sex Assigned At Unknown Tobacco Use/Smoking Question Answer Notes Patient is a former smoker How long has it been since you last smoked? 5-10 years Alcohol Screen Question Answer Notes Did you have a drink containing alcohol in the p ast year? No Points 0 Interpretation Negative PROBLEMS Problem Type ICD Code Onset Dates Problem Status W/U Status Risk SNOMED Code Notes Problem Encounter for screening for malignant neoplasm of colon (Z12.11) Active confirmed 762773418 Problem History of adenomatous polyp of colon (Z86.010) Active confirmed 254371617 Problem Personal history of colonic polyps (Z86.010) Active confirmed History of polyp of colon (situation) (421034375) Problem Diverticulosis of large intestine without perforation or abscess without bleeding (K57.30) Active confirmed Diverticul ar disease of colon (800221321) Problem Preprocedural examination (Z01.818) Active confirmed 166512820 Problem Family history of colon cancer (Z80.0) Active confirmed 171540850 VITAL SIGNS Temperature 97.5 degrees Fahrenheit 12/13/2023 Blood pressure diastolic 00 mm Hg 12/13/2023 Height 66 in 12/13/2023 Blood pressure systolic 00 mm Hg 12/13/2023 Weight 215 lbs 12/13/2023 BMI 34.70 kg/m2 12/13/2023 Encounters Encounter Location Date Provider Diagnosis [facility] Outpatient [address] [place], [place] [phone] 03/12/2024 Milton Sanchez [facility] Outpatient [address] [place], [place] [phone] 06/25/2024 Milton Sanchez Colon cancer screeni ng Z12.11 ; Personal history of colonic polyps Z86.010 ; Diverticulosis of large intestine without perforation or abscess without bleeding K57.30 and Other hemorrhoids K64.8 [facility] [address] [place] [phone] 12/13/2023 Milton Sanchez History of adenomato us polyp of colon Z86.010 ; Preprocedural examination Z01.818 ; Encounter for screening for malignant neoplasm of colon Z12.11 and Family history of colon cancer Z80.0 [facility] [address] [place] [phone] 10/24/2023 Milton Sanchez [facility] [address] [place] [phone] 12/13/2023 Milton Sanchez [facility] [address] [place] [phone] 03/06/2024 Milton Sanchez ASSESSMENTS Encounter Date Diagnosis Assessment Notes Treatment Notes Treatment Clinical Notes 06/25/2024 Colon cancer screening (ICD-10 - Z12.11) 06/25/2024 Personal history of colonic polyps (ICD-10 - Z86.010) 12/13/2023 History of adenomatous polyp of colon (ICD-10 - Z86.010) 12/13/2023 Preprocedural examination (ICD-10 - Z01.818) 06/25/2024 Diverticulosis of large intestine without perforation or abscess without bleeding (ICD-10 - K57.30) 12/13/2023 Encounter for screening for malignant neoplasm of colon (ICD-10 - Z12.11) Do not take your chlorthalidone the day before nor on the day of the colonoscopy. 06/25/2024 Other hemorrhoids (ICD-10 - K64.8) 12/13/2023 Family history of colon cancer (ICD-10 - Z80.0) PLAN OF TREATMENT Future Test Test Name Order Date COLONOSCOPY 09/14/2011 COLONOSCOPY 03/07/2018 COLONOSCOPY 12/13/2023 Insurance Providers Payer Name Payer Address Payer Phone Subscriber Number Group Number Insured Name Patient Relationship to Insured Coverage Start Date Coverage End Date [facility] [address] [place] [phone] [id number] JESSICA WALTERS Self - patient is the insured MEDICAL (GENERAL) HISTORY Medical History History ICD Code Denies VA,DM,CVA,Lung disease,renal dise ase HTN Colonoscopy 11/2011--1 small tubular yoni lamin removed Hyperlipidemia Screening Colonoscopy in March of 2018 was negative Elevated PSA as of the 4 OV and will be scheduling a prostate biopsy with Dr. Mullen Surgical History Surgery Date(Month/Year) Eye surgery as a child---poor vision in the left eye Vein surgery right leg Bilateral gynecomastia surgery
--- OUTSIDE RECORDS SUMMARY | 2024-10-17 00:36 | XMS_ITS | Patient Health Record ---
[facility] Address [address] [facility] [place] [address] Care Team Providers Care Car Distributor Name Role Phone Shimon Griffin Primary Care Provider Unabaltazar Lei Roland Unavailable [phone] Allergies No Known Allergies Reason For Referral No Information Medications Medication SIG (Take, Route, Frequency, Duration) Notes Start Date End Date Status Viagra 100 MG 1 tablet as needed O rally Once a day for 30 day(s) Active Lisinopril 5 MG 1 tablet Orally Once a day for 30 day(s) Active Vitamin D 50 MCG (1999) 1 tablet Oral ly Once a day for 30 day(s) Active Atorvastatin Calcium 10 MG 1 tablet Oral ly Once a day for 30 day(s) Active Chlorthalidone 25 MG 1 tablet in the mor dulce with food Orally Once a day for 30 day(s) Active Ciclopirox 0.77 % 1 application to aff ected area Externally Twice a day for 365 days Active Social History Tobacco Use: Social History Observation Description Date Details (start date - stop date) Former Smoker NA - NA Tobacco Use/Smoking Question Answer Notes Are you a: former smoker Additional Findings: Tobacco Non-User Current no n-smoker Alcohol Screen Question Answer Notes Did you have a drink containing alcohol in the p ast year? No Points 0 Interpretation Negative Tobacco use other than smoking: Question Answer Notes Are you an other tobacco user? No Plan Of Treatment No Information Insurance Providers Payer Name Payer Address Payer Phone Subscriber Number Group Number Insured Name Patient Relationship to Insured Coverage Start Date Coverage End Date [facility] [address] [place] [address] [phone] [id number] Boris Stack Self - patient is the insured Medical (General) History Medical History History ICD Code high blood pressure varicose veins Cholesterol Prostate conditions -enlarged Surgical History Surgery Date(Month/Year) laser treatment for varicose veins
== END 2024-10-11 09:00 | disposition home or self-care (01) ==
LOC: HO.US 08:59
PROVIDERS: PCP Nurse Practitioner Family; Visit Provider Nurse Practitioner Family
DX: R74.8 Abnormal levels of other serum enzymes (principal)
CPT/HCPCS: 76700; 76981

== ENCOUNTER → 2024-10-11 09:02 | Outpatient (BNV) | payer OTHER, SELFPAY | PROVIDERS: PCP Nurse Practitioner Family; Visit Provider Radiology Diagnostic Radiology | DX: K76.0 Fatty (change of) liver, not elsewhere classified (principal) | CPT/HCPCS: 76700 ==

== ENCOUNTER 2024-10-23 14:50 | Outpatient (AMB) | payer OTHER, SELFPAY ==
--- OUTSIDE RECORDS SUMMARY | 2024-10-23 14:52 | XMS_ITS ---
Author Organization [facility] Address [address] [place] [address] Care Team Providers Care Telecommunications Clerk Name Role Phone ALAN HENDRICKSON Primary Care Provider Milton Jimenez [phone] REASON FOR VISIT screening,hx polyps ,fm hx colon ca PROBLEMS Problem Type ICD Code Onset Dates Problem Status W/U Status Risk SNOMED Code Notes Problem Personal history of colonic polyps (Z86.010) Active confirmed History of polyp of colon (situation) (486361523) Problem Diverticulosis of large intestine without perforation or abscess without bleeding (K57.30) Active confirmed Diverticul ar disease of colon (824569087) Encounters Encounter Location Date Provider Diagnosis [facility] Outpatient [address] [place], [place] [phone] 06/25/2024 Milton Sanchez Colon cancer scree dulce [...]
--- OUTSIDE RECORDS SUMMARY | 2024-10-23 14:52 | XMS_ITS ---
Author Organization [facility] Address [address] [place] [address] Care Team Providers Care Operators Teacher Name Role Phone ALAN HENDRICKSON Primary Care Provider Milton Jimenez [phone] REASON FOR VISIT r/s colonoscopy march 12 Encounters Encounter Location Date Provider Diagnosis [facility] [address] [place] [address] 03/06/2024 Milton Sanchez PLAN OF TREATMENT No Information
--- OUTSIDE RECORDS SUMMARY | 2024-10-23 14:52 | XMS_ITS ---
Author Organization [facility] Address [address] [place] [address] Care Team Providers Care Wood Technologist Name Role Phone ALAN HENDRICKSON Primary Care Provider Milton Jimenez [phone] REASON FOR VISIT screening,hx polyps,fam hx colon ca Encounters Encounter Location Date Provider Diagnosis [facility] Outpatient [address] [place] [phone] 03/12/2024 Milton Sanchez PLAN OF TREATMENT No Information
[2024-10-23 14:53] VITALS: BP 110/70; PULSE 57; O2SAT 97; BMI 34.4
--- NOTE | 2024-10-23 14:53 | A.OFFPC_ITS ---
Vital Signs 10/23/24 14:53 Height 5 ft 6 in Weight 213 lb BMI 34.4 BP 110/70 Blood Pressure Location Rt brachial Position Sitting Pulse 57 Pulse Source Pulse Oximeter Pulse Oximetry (%) 97 Intake Visit Reasons: PE Intake Note: pt is here for PE Bank Vault Attendant Required: No Accompanied by: Self / Same As Patient Allergies No Known Allergies Allergy (Verified 10/23/24 14:54) Medication List - Last Reconciled 10/23/24 by ADDIS HernandezP- amlodipine 2.5 mg PO DAILY 90 days atorvastatin 10 mg PO DAILY 90 days blood sugar diagnostic ([employer] Verio test strips) Test blood sugar once a day blood-glucose meter ([employer] Verio Reflect Meter) Test blood sugar once a day chlorthalidone 25 mg PO DAILY cholecalciferol (vitamin D3) 50 mcg PO DAILY finasteride (Proscar) 5 mg PO DAILY 90 days lancets (500pxTouch Delica Plus Lancet) Test blood sugar once a day lisinopril 5 mg PO DAILY sildenafil 100 mg PO DAILY PRN Tobacco use date assessed: 07/02/24 Dental Screening Dental Screen Date: 07/02/24 HPI PE HPI Details History of Present Illness The patient is a 59-year-old male presenting for a PE visit with a focus on diabetes management. He has a diagnosis of type 2 diabetes mellitus, labeled not too long ago, and manages his condition with home glucose monitoring, indicating a typical blood glucose range with occasional imprecise readings. The patient denies any numbness or tingling in the feet. His most recent A1c result was 5.9, suggesting current glucose control. The patient has an established history of amblyopia since , resulting in vision complications such as a lack of depth perception. He has familial considerations around a potential move to a different state in the future. colon screen is up to date and he sees a urologist Health Maintenance - Diabetes management with home glucose monitoring. - Scheduled colon screening up to date, recommended follow-up in 2028. - Recommending a diabetic eye examinatio n. - Regular exercise for physical fitness. Social History - Long-term consistent gym attendance, w ith a personal history of 42 years of active exercise routines. - Family considerations around relocatio n after a family event. - Possible relocation plans to live clos er to family post-relocation. Review of Systems - Neurological: Denies numbness or tingl ing in feet. - Ocular: Reports lack of depth percepti on due to amblyopia. -denies any polyuria, polydipsia, neurop athy, cp, sob, n/v, blood in stool, constipation, or diarrhea. Physical Exam General: Cooperative, healthy appearing, comfortable, no acute distress and well developed Orientation: Patient oriented x3 Limitations: No limitations Head: Normal to inspection Ears: Hearing grossly normal bilaterally Nose: Normal external nose present Face and sinus: Normal facial exam Eyes: Appearance normal, both eyes and all related structures Neck: Normal visual inspection and Yes full ROM Respiratory: Normal respiratory effort and able to speak in complete sentences. Clear to auscultation bilaterally Cardiovascular: Regular rate and rhythm. Normal S1 and S2 GI: Normal to inspection. Soft to palpation and nontender Skin: No rashes or lesions noted Neuro: Patient oriented x3, no numbness or tingling in feet Extremities: Normal to inspection Results - Labs: A1c result of 5.9. Plan - Continue current diabetes management a nd lifestyle modifications. - Continue routine colon screening as pe r the 2028 schedule. - Referral for a diabetic eye exam to [facility]. - Monitor possible hernia and recommend further evaluation if symptoms progress. Patient was informed and verbally consented to the use of an ambient scribe for clinic note documentation during this visit. Discussion Notes During this visit, I discussed the patient's current diabetes management strategy, noting his A1c is at 5.9, indicative of good control. We reviewed the importance of continuing regular glucose monitoring and maintaining an active lifestyle through regular exercise. I recommended a diabetic eye exam to prevent possible retinal complications, stressing the significance of eye care in diabetes management. The patient was conscious of familial and residential plans, factors we considered in his long-term health planning. Continued adherence to scheduled colon screenings and reassessment in 2028 was confirmed. I addressed the ambiguity regarding his possible hernia with plans for monit oring its progression. PT REFUSED VACCINATIONS Patient Instructions - Maintain regular home glucose monitori ng and record readings. - Continue gym and exercise routines as part of diabetes management. - Schedule and attend a diabetic eye exa m for comprehensive retinal assessment. - Be aware of any changes to possible he rnia symptoms and follow up if necessary. - Stay updated with future health screen ings and adhere to recommended follow- ups. PFSH Medical History Anesthesia complication Elevated cholesterol BPH (benign prostatic hyperplasia) HTN (hypertension) Surgical History Hx of prostate biopsy Hx of excision of mass Hx of varicose vein ligation and stripping Hx of eye surgery Hx of colonoscopy Social History Housing: Apartment Patient Tobacco Use Status: Former Tobacco user Tobacco use type: Cigarette e-Cigarette/Vaping Use: Never Used Second Hand Smoke Exposure: No service: No Current occupational status: employed Current occupation: [employer] Current occupational exposures/hazards: No Cognitive needs: No Hearing needs: No Vision needs: No Questionnaire PHQ-9 Over the last 2 weeks, how often have you been bothered by any of the following problems? [address]7585 - PHQ-9 Billing: Patient declined-do not bill Source: Developed by Drs. Milton Monte, Hermila Nunez, Damian Leone and colleagues, with an educational bradley from [employer]. Thrive Questionnaire Date Thrive assessed: 10/23/24 I am a: Patient What is your living situation today?: I have a steady place to live Within the past 12 months, did the food you bought not last and you didn't have the money to get more?: Never true Within the past 12 months, did you worry whether your food would run out before you got money to buy more?: Never true Do you have trouble paying for medicines?: No Do you have trouble getting transportation to medical appointments?: No Do you have trouble paying your heating and electricity bill?: No Do you have trouble taking care of your child, family member or friend?: No Do you have trouble with day-to-day activities such as bathing, preparing meals, shopping, managing finances, etc.?: No Are you currently unemployed and looking for a job?: No Are you interested in more education?: No Please select the resources that you would like help with: None Currently or been in a relationship where the following occur: No concerns reported THRIVE Score: 0 SHY-7 AMB Questionnaire SHY-7 Date SHY - 7 assessed: 07/02/24 Source: Developed by Drs. Milton Monte, Hermila Nunez, Damian Leone and colleagues, with an educational bradley from [employer]. Physical exam (Primary Care) Vital Signs: Last Vital Signs Pulse 57 10/23/24 14:53 BP 110/70 10/23/24 14:53 Pulse Ox 97 10/23/24 14:53 BMI result Body Mass Index 34.4 Tobacco/Smoking Status: Tobacco use Status Tobacco use date assessed 07/02/24 10/23/24 14:54 Patient Tobacco Use Status Former Tobacco user 10/23/24 14:54 Tobacco use type Cigarette 10/23/24 14:54 e-Cigarette/Vaping Use Never Used 10/23/24 14:54 Thrive Assessment: Date of Thrive Assessment Date Thrive assessed 10/23/24 10/23/24 14:54 Currently or been in a relationship where the following occur: No concerns reported Coding Level of Care Code Est Pt Prev Care 40-64y(29505) Diagnoses Diabetes E11.9 Assessment & Plan Assessment & Plan (1) Diabetes: Code(s): E11.9 - Type 2 diabetes mellitus without complications Category: Medical Plan . Orders: Orders Complete Blood Count Auto Diff Today E11.9 - Type 2 diabetes mellitus without complications Comprehensive [place]. Panel Fast Today E11.9 - Type 2 diabetes mellitus without complications Microalbumin, Random (w Creat) Today E11.9 - Type 2 diabetes mellitus without complications Lipid Panel Today R31.29 - Other microscopic hematuria Referrals Ophthalmology Referral E11.9 - Type 2 diabetes mellitus without complications
--- OUTSIDE RECORDS SUMMARY | 2024-10-23 14:53 | XMS_ITS | Patient Health Record ---
[facility] Address [address] [facility] [place] [address] Care Team Providers Care Administration Intern Name Role Phone Shimon Griffin Primary Care Provider Unabaltazar Lei Roland Unavailable [phone] Allergies No Known Allergies Reason For Referral [...] Insured Coverage Start Date Coverage End Date [facility] [address] [place] [address] [phone] [id number] Boris Stack Self - patient is the insured Medical (General) History Medical History History ICD Code high blood pressure varicose veins Cholesterol Prostate conditions -enlarged Surgical History Surgery Date(Month/Year) laser treatment for varicose veins
--- OUTSIDE RECORDS SUMMARY | 2024-10-23 14:53 | XMS_ITS | Patient Health Record ---
Author Organization [facility] Address [address] [place] [address] Care Team Providers Care Band Saw Operator Name Role Phone ALAN HENDRICKSON Primary Care Provider Milton Jimenez [phone] ALLERGIES No Known Allergies REASON FOR REFERRAL [...] malignant neoplasm of colon (Z12.11) Active confirmed 569755938 Problem History of adenomatous polyp of colon (Z86.010) Active confirmed 340571464 Problem Personal history of colonic polyps (Z86.010) Active confirmed History of polyp of colon (situation) (195020442) Problem Diverticulosis of large intestine without perforation or abscess without bleeding (K57.30) Active confirmed Diverticul ar disease of colon (748983116) Problem Preprocedural examination (Z01.818) Active confirmed 843909092 Problem Family history of colon cancer (Z80.0) Active confirmed 867578237 VITAL SIGNS Temperature 97.5 degrees Fahrenheit 12/13/2023 Blood pressure diastolic 00 mm Hg 12/13/2023 Height 66 in 12/13/2023 Blood pressure systolic 00 mm Hg 12/13/2023 Weight 215 lbs 12/13/2023 BMI 34.70 kg/m2 12/13/2023 Encounters Encounter Location Date Provider Diagnosis [facility] [place] [address] [place], [place] [phone] 03/12/2024 Milton Sanchez [facility] [place] [address] [place], [place] [phone] 06/25/2024 Milton Sanchez Colon cancer screeni ng Z12.11 ; Personal history of colonic polyps Z86.010 ; Diverticulosis of large intestine without perforation or abscess without bleeding K57.30 and Other hemorrhoids K64.8 [facility] [address] [place] [phone] 12/13/2023 Milton Sanchez History of adenomato us polyp of colon Z86.010 ; Preprocedural examination Z01.818 ; Encounter for screening for malignant neoplasm of colon Z12.11 and Family history of colon cancer Z80.0 [facility] [address] [place] [phone] 10/24/2023 Milton Sanchez [facility] [address] [place] [phone] 12/13/2023 Milton Sanchez [facility] [address] [place] [phone] 03/06/2024 Milton Sanchez ASSESSMENTS Encounter Date Diagnosis [...] Insured Coverage Start Date Coverage End Date [facility] [address] [place] [phone] [id number] JESSICA WALTERS Self - patient is the insured MEDICAL (GENERAL) HISTORY Medical History History ICD Code Denies ID,DM,CVA,Lung disease,renal dise ase HTN Colonoscopy 11/2011--1 small [...]
== END 2024-10-23 15:45 | disposition home or self-care (01) ==
PROVIDERS: PCP Nurse Practitioner Family; Visit Provider Nurse Practitioner Family
DX: Z00.00 Encounter for general adult medical examination without abnormal findings (principal); E11.9 Type 2 diabetes mellitus without complications

== ENCOUNTER → 2024-10-23 14:50 | Outpatient (BNVA) | payer OTHER, SELFPAY | PROVIDERS: PCP Nurse Practitioner Family; Visit Provider Nurse Practitioner Family | DX: Z00.00 Encounter for general adult medical examination without abnormal findings (principal); E11.9 Type 2 diabetes mellitus without complications | CPT/HCPCS: 83036 ==

== ENCOUNTER 2024-11-19 11:23 | Outpatient (AMB) | payer OTHER, SELFPAY ==
--- NOTE | 2024-11-19 11:30 | MHC.OFFVIS ---
Intake Visit Reasons: 8m/PSA Intake Note: Patient is present for 8 month PSA Urology Med: Finasteride, Sildenafil Antibiotic Allergy: None Blood Thinner: None PVR: 41ml's Banding Machine Operator Required: No Accompanied by: Self / Same As Patient Allergies No Known Allergies Allergy (Verified 11/19/24 11:42) Medication List - Last Reconciled 11/19/24 by Shant Styles MD amlodipine 2.5 mg PO DAILY 90 days atorvastatin 10 mg PO DAILY 90 days blood sugar diagnostic (DripplerTouch Verio test strips) Test blood sugar once a day blood-glucose meter ([employer] Verio Reflect Meter) Test blood sugar once a day chlorthalidone 25 mg PO DAILY cholecalciferol (vitamin D3) 50 mcg PO DAILY lancets (DripplerTouch Delica Plus Lancet) Test blood sugar once a day lisinopril 5 mg PO DAILY sildenafil 100 mg PO DAILY PRN HPI Comments Details: 11/19/2024--Boris is here for follow-up elevated PSA. He has been on Proscar. He states he has not been compliant with the medication because it causes him to have no energy when he takes it. When he does not take it he feels fine. He did not have his PSA done prior to this visit. Will discontinue Proscar for now follow-up with him to discuss PSA results once he has lab completed. Review of chart-- 03/22/2024--Boris has been followed for elevated PSA and BPH. He had prostate biopsy done, 02/07/2024-results note benign prostate tissue. PSA 11/14/2023--6.99 ng/mL. Discussed Proscar 5 mg daily. Follow-up in 8 months PSA prior. 11/25/2023-- Boris is a 58-year-old male who presents telehealth visit for elevated PSA. He was last seen on 09/19/2023. I am discussed in repeat PSA which is 6.99. I have discussed further evaluation with Transrectal Ultrasound guided biopsy of the prostate. Discussed risks to include but not limited to pain, blood in stool, urine and semen, septicemia, need to repeat biopsy. Discussed ultrasound retroperitoneum results--kidneys within normal limits estimated prostate volume 52 mL, prostatic calcifications noted. 09/19/2023? He is present today for an evaluation of elevated PSA. Laboratory review ? PSA ? 02/04/2020 was 4.08 ng/mL and on 07/06/2023 was 5.69 ng/mL. Patient states that in terms of LUTS of prostatitis he feels that the symptoms are improved on tamsulosin. Patient states that he is also concerned about a lump on the shaft of his penis. Examination: currently no abnormal findings noted on genitalia. Prostate examination: smooth, moderately enlarged prostate. Plan:Repeat PSA, US retroperitoneum, Follow-up in 7 weeks. PFSH Medical History Anesthesia complication Elevated cholesterol BPH (benign prostatic hyperplasia) HTN (hypertension) Surgical History Hx of prostate biopsy Hx of excision of mass Hx of varicose vein ligation and stripping Hx of eye surgery Hx of colonoscopy Social History Housing: Apartment Patient Tobacco Use Status: Former Tobacco user Tobacco use type: Cigarette e-Cigarette/Vaping Use: Never Used Second Hand Smoke Exposure: No service: No Current occupational status: employed Current occupation: [employer] Current occupational exposures/hazards: No Cognitive needs: No Hearing needs: No Vision needs: No Review of Systems Const All systems reviewed & are unremarkable except as noted in HPI and below Reports no additional complaints Eyes Reports no additional complaints ENT Reports no additional complaints Card Reports no additional complaints Resp Reports no additional complaints GI Reports no additional complaints Reports as per HPI Musc Reports no additional complaints Skin/Breast Reports system reviewed and no additional complaints, except as documented Neuro Reports no additional complaints Psych Reports no additional complaints Endo Reports no additional complaints Esdras/Lymph Reports no additional complaints Aller/Immun Reports no additional complaints Office Procedures Post Void Residual Post Residual Void Post Void Residual (PVR): 41 [id number]-[id number] Void Residual by ultrasound Results AMB Urinalysis, Automated UA Leukoctes 0 Mile/uL Last Edit by Radha Pizano CMA on 11/19/24 11:51 UA Nitrite Negative Last Edit by Radha Pizano CMA on 11/19/24 11:51 UA Urobilinogen 0.2 mg/dL Last Edit by Radha Pizano CMA on 11/19/24 11:51 UA Protein 0 mg/dL Last Edit by Radha Pizano CMA on 11/19/24 11:51 UA pH 5.5 Last Edit by Radha Pizano CMA on 11/19/24 11:51 UA Blood 10 Justin/uL Last Edit by Radha Pizano CMA on 11/19/24 11:51 UA Specific [place] 1.025 Last Edit by Radha Pizano CMA on 11/19/24 11:51 UA Ketone Negative Last Edit by Radha Pizano CMA on 11/19/24 11:51 UA Bilirubin 0 mg/dL Last Edit by Radha Pizano CMA on 11/19/24 11:51 UA Glucose 0 mg/dL Last Edit by Radha Pizano CMA on 11/19/24 11:51 Results Reviewed Results Reviewed: Laboratory Last Values Urine pH (Auto) 5.5 11/19/24 11:41 Specific [place] (Auto) 1.025 11/19/24 11:41 Urine Protein (Auto) 0 mg/dL 11/19/24 11:41 Glucose (UA)(Auto) 0 mg/dL 11/19/24 11:41 Urine Ketones (Auto) Negative 11/19/24 11:41 Urine Blood (Auto) 10 Justin/uL 11/19/24 11:41 Urine Nitrite (Auto) Negative 11/19/24 11:41 Urine Bilirubin (Auto) 0 mg/dL 11/19/24 11:41 Urine Urobilinogen (Auto) 0.2 mg/dL 11/19/24 11:41 Leukocyte Esterase (Auto) 0 Mile/uL 11/19/24 11:41 Assessment & Plan Assessment & Plan (1) Elevated PSA: Code(s): R97.20 - Elevated prostate specific antigen [PSA] Category: Medical (2) Screening for prostate cancer: Code(s): Z12.5 - Encounter for screening for malignant neoplasm of prostate Category: Medical (3) BPH (benign prostatic hyperplasia): Code(s): N40.0 - Benign prostatic hyperplasia without lower urinary tract symptoms Category: Medical Plan Side effect to Proscar causes lethargy. Discontinue Proscar. Patient will get PSA done. Orders: Orders AMB Post Void Residual by ultrasound Today R31.29 - Other microscopic hematuria Prostate Specific Antigen 11/12/24 Z12.5 - Encounter for screening for malignant neoplasm of prostate AMB Urinalysis Automated Today Z13.9 - Encounter for screening, unspecified Medications: Discontinued finasteride (Proscar) Discontinued Reason: Doctor's Order 5 mg PO DAILY 90 days 90 tabs 3RF Patient Instructions: The patient had an opportunity to ask questions regarding treatment plan. The patient expressed understanding and agreement with the above treatment plan. The patient is aware they should contact our office by phone for worsening of their current condition or the appearance of new symptoms. Compliance is encouraged with any medications and followup testing that is ordered. It is a privilege to be allowed the opportunity to participate in the urologic care of your patient. If you have any questions or concerns regarding treatment for the above conditions please do not hesitate to contact me. The office telephone contact is [phone]. This note is constructed in part using voice recognition software. While every effort has been made to ensure accuracy button decorating machine operator errors may have been included. Yours sincerely, Shant Styles MD Coding Level of Care Code Est Pt Level 3 (30550) Diagnoses Elevated PSA R97.20 Screening for prostate cancer Z12.5 BPH (benign prostatic hyperplasia) N40.0 CPT Codes Post Residual Void - PVR CPT Code: 59707-Dqcs Void Residual by ultrasound ([id number])
--- OUTSIDE RECORDS SUMMARY | 2024-11-19 13:26 | XMS_ITS ---
Author Organization [facility] Address [address] [place] [address] Care Team Providers Care Scalehouse Attendant Name Role Phone ALAN HENDRICKSON Primary Care Provider Milton Jimenez [phone] REASON FOR VISIT screening,hx polyps,fam hx colon ca Encounters Encounter Location Date Provider [place] [facility] [place] [address] [place] [id number] 03/12/2024 Milton Sanchez PLAN OF TREATMENT No Information
--- OUTSIDE RECORDS SUMMARY | 2024-11-19 13:26 | XMS_ITS ---
Author Organization [facility] Address [address] [place] [address] Care Team Providers Care Texturing Machine Fixer Name Role Phone ALAN HENDRICKSON Primary Care Provider Milton Jimenez [phone] REASON FOR VISIT screening,hx polyps ,fm hx colon ca PROBLEMS Problem Type ICD Code Onset Dates Problem Status W/U Status Risk SNOMED Code Notes Problem Personal history of colonic polyps (Z86.010) Active confirmed History of polyp of colon (situation) (936632287) Problem Diverticulosis of large intestine without perforation or abscess without bleeding (K57.30) Active confirmed Diverticul ar disease of colon (616473915) Encounters Encounter Location Date Provider Diagnosis [facility] [place] [address] [place], [place] [phone] 06/25/2024 Milton Sanchez Colon cancer scree dulce [...]
--- OUTSIDE RECORDS SUMMARY | 2024-11-19 13:27 | XMS_ITS | Patient Health Record ---
Author Organization [facility] Address [address] [place] [address] Care Team Providers Care Protective Officer Name Role Phone ALAN HENDRICKSON Primary Care Provider Milton Jimenez [phone] ALLERGIES No Known Allergies REASON FOR REFERRAL [...] malignant neoplasm of colon (Z12.11) Active confirmed 591699799 Problem History of adenomatous polyp of colon (Z86.010) Active confirmed 303688122 Problem Personal history of colonic polyps (Z86.010) Active confirmed History of polyp of colon (situation) (712151329) Problem Diverticulosis of large intestine without perforation or abscess without bleeding (K57.30) Active confirmed Diverticul ar disease of colon (263246280) Problem Preprocedural examination (Z01.818) Active confirmed 802855188 Problem Family history of colon cancer (Z80.0) Active confirmed 758231980 VITAL SIGNS Temperature 97.5 degrees Fahrenheit 12/13/2023 Blood pressure diastolic 00 mm Hg 12/13/2023 Height 66 in 12/13/2023 Blood pressure systolic 00 mm Hg 12/13/2023 Weight 215 lbs 12/13/2023 BMI 34.70 kg/m2 12/13/2023 Encounters Encounter Location Date Provider [place] [facility] [place] [address] [place], [place] [phone] 03/12/2024 Milton Sanchez [facility] [place] [address] [place], [place] [id number] 06/25/2024 Milton Sanchez Colon cancer screeni ng Z12.11 ; Personal history of colonic polyps Z86.010 ; Diverticulosis of large intestine without perforation or abscess without bleeding K57.30 and Other hemorrhoids K64.8 [facility] [address] [place] [phone] 12/13/2023 Milton Sanchez History of adenomato us polyp of colon Z86.010 ; Preprocedural examination Z01.818 ; Encounter for screening for malignant neoplasm of colon Z12.11 and Family history of colon cancer Z80.0 [facility] [address] [place] [phone] 12/13/2023 Milton Sanchez [facility] [address] [address] 03/06/2024 Milton Sanchez ASSESSMENTS Encounter Date Diagnosis [...] Insured Coverage Start Date Coverage End Date [facility] [address] [place] [address] [id number] JESSICA WALTERS Self - patient is the insured MEDICAL (GENERAL) HISTORY Medical History History ICD Code Denies LA,DM,CVA,Lung disease,renal dise ase HTN Colonoscopy 11/2011--1 small tubular yoni lamin removed Hyperlipidemia Screening Colonoscopy in March of 2018 was negative Elevated PSA as of the OV and will be scheduling a prostate biopsy with Dr. Mullen Surgical History Surgery Date(Month/Year) Eye surgery as a child---poor vision in the left eye Vein surgery right leg Bilateral gynecomastia surgery
--- OUTSIDE RECORDS SUMMARY | 2024-11-19 13:27 | XMS_ITS | Patient Health Record ---
[facility] Address [address] [place] [address] Care Team Providers Care Strip Feeder Name Role Phone Shimon Griffin Primary Care Provider Unabaltazar Lei Roland Unavailable [phone] Allergies No Known Allergies Reason For Referral [...] Insured Coverage Start Date Coverage End Date [facility] [address] [place] [address] [phone] [id number] Boris Stack Self - patient is the insured Medical (General) History Medical History History ICD Code high blood pressure varicose veins Cholesterol Prostate conditions -enlarged Surgical History Surgery Date(Month/Year) laser treatment for varicose veins
--- OUTSIDE RECORDS SUMMARY | 2024-11-19 13:27 | XMS_ITS ---
Author Organization [facility] Address [address] [place] [address] Care Team Providers Care Compounding Pharmacy Technician Name Role Phone ALAN HENDRICKSON Primary Care Provider Milton Jimenez [phone] REASON FOR VISIT r/s colonoscopy march 12 Encounters Encounter Location Date Provider Diagnosis [facility] [address] [place] [address] 03/06/2024 Milton Sanchez PLAN OF TREATMENT No Information
== END 2024-11-19 12:02 | disposition home or self-care (01) ==
PROVIDERS: PCP Nurse Practitioner Family; Visit Provider Urology
DX: R97.20 Elevated prostate specific antigen [PSA] (principal); Z12.5 Encounter for screening for malignant neoplasm of prostate; N40.0 Benign prostatic hyperplasia without lower urinary tract symptoms; Z13.9 Encounter for screening, unspecified
CPT/HCPCS: 99213

== ENCOUNTER → 2024-11-19 11:23 | Outpatient (BNVA) | payer OTHER, SELFPAY | PROVIDERS: PCP Nurse Practitioner Family; Visit Provider Urology | DX: R97.20 Elevated prostate specific antigen [PSA] (principal); N40.0 Benign prostatic hyperplasia without lower urinary tract symptoms; R31.29 Other microscopic hematuria | CPT/HCPCS: 51798; 81003 ==

== ENCOUNTER 2024-12-20 16:12 | Outpatient (AMB) | payer OTHER, SELFPAY ==
--- NOTE | 2024-12-20 16:13 | A.OFFVIS_ITS ---
Intake Visit Reasons: 4w/PSA Intake Note: Patient presents for tele visit follow up on: PSA Urology Med: Finasteride, Sildenafil Antibiotic Allergy: None Blood Thinner: None Cash Application Clerk Required: No Allergies No Known Allergies Allergy (Verified 12/20/24 16:39) Medication List - Last Reconciled 12/20/24 by Shant Styles MD amlodipine 2.5 mg PO DAILY 90 days atorvastatin 10 mg PO DAILY 90 days blood sugar diagnostic (PolisofiaTouch Verio test strips) Test blood sugar once a day blood-glucose meter ([employer] Verio Reflect Meter) Test blood sugar once a day chlorthalidone 25 mg PO DAILY cholecalciferol (vitamin D3) 50 mcg PO DAILY lancets ([employer]isofiaTouch Delica Plus Lancet) Test blood sugar once a day lisinopril 5 mg PO DAILY sildenafil 100 mg PO DAILY PRN HPI Comments Details: 12/20/24--Boris is here for telehealth follow-up elevated PSA. He did not tolerate Proscar. He had prostate biopsy done, 02/07/2024-results note benign prostate tissue. PSA 11/14/2023--6.99 ng/mL. I have reviewed repeat PSA---6.35 ng/mL. I have discussed continue to monitor will check an MRI prostate and repeat PSA in 6 months. 11/19/2024--Boris is here for follow-up elevated PSA. He has been on Proscar. He states he has not been compliant with the medication because it causes him to have no energy when he takes it. When he does not take it he feels fine. He did not have his PSA done prior to this visit. Will discontinue Proscar for now follow-up with him to discuss PSA results once he has lab completed. 03/22/2024--Boris has been followed for elevated PSA and BPH. He had prostate biopsy done, 02/07/2024-results note benign prostate tissue. PSA 11/14/2023--6.99 ng/mL. Discussed Proscar 5 mg daily. Follow-up in 8 months PSA prior. 11/25/2023-- Boris is a 58-year-old male who presents telehealth visit for elevated PSA. He was last seen on 09/19/2023. I am discussed in repeat PSA which is 6.99. I have discussed further evaluation with Transrectal Ultrasound guided biopsy of the prostate. Discussed risks to include but not limited to pain, blood in stool, urine and semen, septicemia, need to repeat biopsy. Discussed ultrasound retroperitoneum results--kidneys within normal limits estimated prostate volume 52 mL, prostatic calcifications noted. 09/19/2023?He is present today for an evaluation of elevated PSA. Laboratory review ? PSA ? 02/04/2020 was 4.08 ng/mL and on 07/06/2023 was 5.69 ng/mL. Patient states that in terms of LUTS of prostatitis he feels that the symptoms are improved on tamsulosin. Patient states that he is also concerned about a lump on the shaft of his penis. Examination: currently no abnormal findings noted on genitalia. Prostate examination: smooth, moderately enlarged prostate. Plan:Repeat PSA, US retroperitoneum, Follow-up in 7 weeks. [facility] Medical History Anesthesia complication Elevated cholesterol BPH (benign prostatic hyperplasia) HTN (hypertension) Surgical History Hx of prostate biopsy Hx of excision of mass Hx of varicose vein ligation and stripping Hx of eye surgery Hx of colonoscopy Social History Housing: Apartment Patient Tobacco Use Status: Former Tobacco user Tobacco use type: Cigarette e-Cigarette/Vaping Use: Never Used Second Hand Smoke Exposure: No service: No Current occupational status: employed Current occupation: [employer] Current occupational exposures/hazards: No Cognitive needs: No Hearing needs: No Vision needs: No Review of Systems Const All systems reviewed & are unremarkable except as noted in HPI and below Reports no additional complaints Eyes Reports no additional complaints ENT Reports no additional complaints Card Reports no additional complaints Resp Reports no additional complaints GI Reports no additional complaints Reports as per HPI Musc Reports no additional complaints Skin/Breast Reports system reviewed and no additional complaints, except as documented Neuro Reports no additional complaints Psych Reports no additional complaints Endo Reports no additional complaints Esdras/Lymph Reports no additional complaints Aller/Immun Reports no additional complaints Telehealth Telehealth Telehealth Platform: [facility] Location of provider rendering services: practice address Location of patient: address on file Patient Identification confirmed using: Name, : Yes Telehealth method: video Patient verbally consented to treatment: Yes Patient verbally consented to billing insurance company: Yes Patient informed of any privacy concerns related to visit: Yes Assessment & Plan Assessment & Plan (1) Elevated PSA: Code(s): R97.20 - Elevated prostate specific antigen [PSA] Category: Medical (2) BPH (benign prostatic hyperplasia): Code(s): N40.0 - Benign prostatic hyperplasia without lower urinary tract symptoms Category: Medical Plan MR prostate, PSA in 6 months Orders: Orders MR Prostate wo/w con 6 Months R97.20 - Elevated prostate specific antigen [PSA] PSA,Total (Free>4and<10) 6 Months R97.20 - Elevated prostate specific antigen [PSA] Patient Instructions: The patient had an opportunity to ask questions regarding treatment plan. The patient expressed understanding and agreement with the above treatment plan. The patient is aware they should contact our office by phone for worsening of their current condition or the appearance of new symptoms. Compliance is encouraged with any medications and followup testing that is ordered. It is a privilege to be allowed the opportunity to participate in the urologic care of your patient. If you have any questions or concerns regarding treatment for the above conditions please do not hesitate to contact me. The office telephone contact is [phone]. This note is constructed in part using voice recognition software. While every effort has been made to ensure accuracy cloth trimmer hand errors may have been included. Yours sincerely, Shant Styles MD Coding Level of Care Code Tele Est Pt Level 4 (92685) Diagnoses Elevated PSA R97.20 BPH (benign prostatic hyperplasia) N40.0
--- OUTSIDE RECORDS SUMMARY | 2024-12-20 16:15 | XMS_ITS | Patient Health Record ---
[facility] Address [address] [place] [address] Care Team Providers Care Crutching Contractor Name Role Phone Shimon Griffin Primary Care Provider Unabaltazar Lei Roland Unavailable [phone] Allergies No Known Allergies Reason For Referral [...] Insured Coverage Start Date Coverage End Date [facility] [address] [place] [address] [phone] [id number] Boris Stack Self - patient is the insured Medical (General) History Medical History History ICD Code high blood pressure varicose veins Cholesterol Prostate conditions -enlarged Surgical History Surgery Date(Month/Year) laser treatment for varicose veins
== END 2024-12-20 16:50 | disposition home or self-care (01) ==
LOC: HO.HUSH 16:12
PROVIDERS: PCP Nurse Practitioner Family; Visit Provider Urology
DX: R97.20 Elevated prostate specific antigen [PSA] (principal); N40.0 Benign prostatic hyperplasia without lower urinary tract symptoms
CPT/HCPCS: 99214

== ENCOUNTER → 2024-12-20 16:12 | Outpatient (BNVA) | payer OTHER, SELFPAY | PROVIDERS: PCP Nurse Practitioner Family; Visit Provider Urology ==

== ENCOUNTER 2025-04-30 15:16 | Outpatient (AMB) | payer OTHER, SELFPAY ==
--- OUTSIDE RECORDS SUMMARY | 2024-06-25 04:30 | XMS_ITS ---
Author Organization [facility] Address [address] [place] [address] Care Team Providers Care Mask Designer Name Role Phone ALAN HENDRICKSON Primary Care Provider Milton Jimenez [phone] REASON FOR VISIT screening,hx polyps ,fm hx colon ca Problems Problem Type SNOMED Code ICD Code Onset Dates Problem Status W/U Status Risk Notes Problem History of polyp of colon (situation) (305067213) Personal history of colonic polyps (Z86.010) Active confirmed Problem Diverticular disease of colon (366918921) Diverticulosis of large intestine without perforation or abscess without bleeding (K57.30) Active confirmed Encounters Encounter Location Date Provider Diagnosis [facility] [place] Outpatient [address] [place] [phone] 06/25/2024 Milton Sanchez Colon cancer scree dulce [...] Notes * JESSICA WALTERSDOB:1965 (59 yo M)Acc No.[id number]:06/25/2024 COLON WITH MAC Patient: JESSICA MALDONADO Provider: Lisa Sanchez MD :1965 A ge:58 Y S ex:Male Date:06/25/2024 Address: [address] [facility] Pcp:ALAN HENDRICKSON Subjective: * Chief Complaints: * [...] Date: 06/25/2024 Generated for [place] cid/[place]/Dionicioitting on: 04/30/2025 06:29 PM EDT
--- NOTE | 2025-04-30 15:22 | A.OFFPC_ITS ---
Vital Signs 04/30/25 15:23 Height 5 ft 6 in Weight 199 lb BMI 32.1 BP 118/72 Blood Pressure Location Lt brachial Position Sitting Pulse 60 Pulse Source Pulse Oximeter Pulse Oximetry (%) 96 Oxygen Delivery Method Room Air Intake Visit Reasons: 6 months f/up Allergies No Known Allergies Allergy (Verified 04/30/25 15:23) Tobacco use date assessed: 04/30/25 Dental Screening Dental Screen Date: 04/30/25 Did you have a dental visit in the last 12 months?: No Did you have a dental problem in the last 6 months where you did not have access to dental care?: No Was dental information given to patient?: Patient declined HPI 6 months f/up HPI Details History of Present Illness The patient is a 59-year-old male presenting with a physical examination and management of diabetes mellitus. He denies experiencing any chest pain, dyspnea, abdominal pain, hematochezia, constipation, or diarrhea. He also denies any suicidal or homicidal ideations. The patient reports no polyuria, polydipsia, or neuropathy. His A1c level today was 5.6%, indicating good glycemic control. He has declined any eye examination at this time. Health Maintenance - Physical examination conducted - A1c level measured at 5.6% - Patient advised to perform ear irrigat ion at home Social History Review of Systems - Cardiovascular: Denies chest pain - Respiratory: Denies dyspnea - Gastrointestinal: Denies abdominal sudhir n, hematochezia, constipation, or diarrhea - Neurological: Denies suicidal or homic idal ideations - Endocrine: Denies polyuria, polydipsia , or neuropathy Physical Exam General: Cooperative, healthy appearing, comfortable, no acute distress and well developed Orientation: Patient oriented x3 Limitations: No limitations Head: Normal to inspection Ears: Hearing grossly normal bilaterally, but a little cerumen in the left side Nose: Normal external nose present Face and sinus: Normal facial exam Eyes: Declined any kind of eye exam Neck: Normal visual inspection and Yes full ROM Respiratory: Normal respiratory effort and able to speak in complete sentences. Clear to auscultation bilaterally Cardiovascular: Regular rate and rhythm. Normal S1 and S2 GI: Diastasis rectus noted : Testicles without masses/lesions and no hernias appreciated Skin: No rashes or lesions noted Neuro: Patient oriented x3 Extremities: Feet intact bilaterally with positive sensation using monofilament. Normal to inspection Results - Labs: A1c level at 5.6% Plan The patient will continue to manage his diabetes mellitus with regular monitoring of blood glucose levels and maintaining his current lifestyle modifications, as his A1c level is well-controlled at 5.6%. He is advised to perform ear irrigation at home using his own kit to address the cerumen in his left ear. Follow-up appointments will be scheduled to monitor his condition and ensure continued management of his diabetes and overall health. Patient Instructions - Continue monitoring blood glucose pierree ls regularly. - Maintain current lifestyle modificatio ns to manage diabetes. - Use home ear irrigation kit to clear c erumen from left ear. - Schedule follow-up appointments as adv ised. [facility] Medical History Anesthesia complication Elevated cholesterol BPH (benign prostatic hyperplasia) HTN (hypertension) Surgical History Hx of prostate biopsy Hx of excision of mass Hx of varicose vein ligation and stripping Hx of eye surgery Hx of colonoscopy Social History Housing: Apartment Patient Tobacco Use Status: Former Tobacco user Tobacco use type: Cigarette e-Cigarette/Vaping Use: Never Used Second Hand Smoke Exposure: No service: No Current occupational status: employed Current occupation: D[employer] Current occupational exposures/hazards: No Cognitive needs: No Hearing needs: No Vision needs: No Questionnaire PHQ-9 Over the last 2 weeks, how often have you been bothered by any of the following problems? 1. Little interest or pleasure in doing things: not at all 2. Feeling down, depressed, or hopeless: not at all 3. Trouble falling or staying asleep, or sleeping too much: not at all 4. Feeling tired or having little energy: not at all 5. Poor appetite or overeating: not at all 6. Feeling bad about yourself - or that you are a failure or have let yourself or your family down: not at all 7. Trouble concentrating on things, such as reading the newspaper or watching television: not at all 8. Moving or speaking so slowly that other people could have noticed. Or the opposite - being so fidgety or restless that you have been moving around a lot more than usual: not at all 9. Thoughts that you would be better off or of hurting yourself in some way: not at all Total score: 0 Depression Screening Interpretation: Negative Depression Screening Done: Yes 55562 - PHQ-9 Billing: Yes Source: Developed by Drs. Milton Monte, Hermila Nunez, Damian Leone and colleagues, with an educational bradley from [employer]. Thrive Questionnaire Date Thrive assessed: 04/30/25 I am a: Patient What is your living situation today?: I have a steady place to live Within the past 12 months, did the food you bought not last and you didn't have the money to get more?: Never true Within the past 12 months, did you worry whether your food would run out before you got money to buy more?: Never true Do you have trouble paying for medicines?: No Do you have trouble getting transportation to medical appointments?: No Do you have trouble paying your heating and electricity bill?: No Do you have trouble taking care of your child, family member or friend?: No Do you have trouble with day-to-day activities such as bathing, preparing meals, shopping, managing finances, etc.?: No Are you currently unemployed and looking for a job?: No Are you interested in more education?: No Please select the resources that you would like help with: None Currently or been in a relationship where the following occur: No concerns reported THRIVE Score: 0 AUDIT C Alcohol Use Questionnaire (AUDIT-C) 1. How often do you have a drink containing alcohol?: Monthly or less 2. How many drinks containing alcohol do you have on a typical day when you are drinking?: 1 or 2 3. How often do you have six or more drinks on one occasion?: Never Total Score: 1 Score Reviewed/Action Taken: Yes SHY-7 AMB Questionnaire SHY-7 Date SHY - 7 assessed: 04/30/25 Feeling nervous, anxious, or on edge: 0 = Not at all Not being able to stop or control worryin = Not at all Worrying too much about different things: 0 = Not at all Trouble relaxin = Not at all Being so restless that it is hard to sit still: 0 = Not at all Becoming easily annoyed or irritable: 1 = Several days Feeling afraid as if something awful might happen: 0 = Not at all Total SHY-7 score (0-4 normal; 5-9 mild; 10-14 moderate; 15-21 severe): 1 Source: Developed by Drs. Milton Monte, Hermila Nunez, Damian Leone and colleagues, with an educational bradley from [employer]. SHY-7 Assessment Billing SHY-7 Assessment Tool: SHY-7 Assessment 43761 Physical exam (Primary Care) Vital Signs: Last Vital Signs Pulse 60 04/30/25 15:23 BP 118/72 04/30/25 15:23 Pulse Ox 96 04/30/25 15:23 Oxygen Delivery Method Room Air 04/30/25 15:23 BMI result Body Mass Index 32.1 Tobacco/Smoking Status: Tobacco use Status Tobacco use date assessed 04/30/25 04/30/25 15:25 Patient Tobacco Use Status Former Tobacco user 04/30/25 15:25 Tobacco use type Cigarette 04/30/25 15:25 e-Cigarette/Vaping Use Never Used 04/30/25 15:25 PHQ-9: PHQ-9 Score PHQ-9: Total score 0 04/30/25 15:25 Depression Screening Interpretation: Negative Thrive Assessment: Date of Thrive Assessment Date Thrive assessed 04/30/25 04/30/25 15:25 Currently or been in a relationship where the following occur: No concerns reported Results AMB Hemoglobin A1c AMB Hemoglobin A1c 5.6 % Last Edit by Alireza Hurley CMA on 04/30/25 15: 47 Results Reviewed Results Reviewed: Laboratory Last Values Hgb A1c (Clinic) 5.6 % (4.0-6.0) 04/30/25 15:46 Coding Level of Care Code Est Pt Level 3 (46275) Est Pt Prev Care 40-64y(07933) Diagnoses Diabetes E11.9 Encounter for routine adult physical exam with abnormal findings Z00.01 Additional Codes SHY-7 Assessment Billing - SHY-7 Assessment Tool: SHY-7 Assessment 47116 ([id number]) PHQ-9 - 13317 - PHQ-9 Billing: Yes ([id number]) Assessment & Plan Assessment & Plan (1) Diabetes: Code(s): E11.9 - Type 2 diabetes mellitus without complications Category: Medical (2) Encounter for routine adult physical exam with abnormal findings: Code(s): Z00.01 - Encounter for general adult medical examination with abnormal findings Category: Medical Plan . Orders: Orders Complete Blood Count Auto Diff Today E11.9 - Type 2 diabetes mellitus without complications, Z00.01 - Encounter for general adult medical examination with abnormal findings Comprehensive [place]. Panel Fast Today E11.9 - Type 2 diabetes mellitus without complications, Z00.01 - Encounter for general adult medical examination with abnormal findings TSH reflex Free T4 Today E11.9 - Type 2 diabetes mellitus without complications, Z00.01 - Encounter for general adult medical examination with abnormal findings AMB Hemoglobin A1c Today Z13.9 - Encounter for screening, unspecified UA CC w/rflx Micro + Cult Today E11.9 - Type 2 diabetes mellitus without complications, Z00.01 - Encounter for general adult medical examination with abnormal findings Lipid Panel Today E11.9 - Type 2 diabetes mellitus without complications, Z00.01 - Encounter for general adult medical examination with abnormal findings
[2025-04-30 15:23] VITALS: BP 118/72; PULSE 60; O2SAT 96; BMI 32.1
== END 2025-04-30 16:08 | disposition home or self-care (01) ==
LOC: HO.HMCC 15:17
PROVIDERS: PCP Nurse Practitioner Family; Visit Provider Nurse Practitioner Family
DX: Z00.01 Encounter for general adult medical examination with abnormal findings (principal); E11.9 Type 2 diabetes mellitus without complications

== ENCOUNTER → 2025-04-30 15:16 | Outpatient (BNVA) | payer OTHER, SELFPAY | PROVIDERS: PCP Nurse Practitioner Family; Visit Provider Nurse Practitioner Family | DX: Z00.01 Encounter for general adult medical examination with abnormal findings (principal); E11.9 Type 2 diabetes mellitus without complications | CPT/HCPCS: 83036; 96127 ==

== ENCOUNTER 2025-06-11 13:54 | Outpatient (REF) | payer OTHER, SELFPAY ==
--- OUTSIDE RECORDS SUMMARY | 2024-06-25 04:30 | XMS_ITS ---
Author Organization [facility] Address [address] [place] [address] Care Team Providers Care Donor Floor Technician Name Role Phone ALAN HENDRICKSON Primary Care Provider Milton Jimenez [phone] REASON FOR VISIT screening,hx polyps ,fm hx colon ca Problems Problem Type SNOMED Code ICD Code Onset Dates Problem Status W/U Status Risk Notes Problem History of polyp of colon (situation) (506683283) Personal history of colonic polyps (Z86.010) Active confirmed Problem Diverticular disease of colon (703487058) Diverticulosis of large intestine without perforation or abscess without bleeding (K57.30) Active confirmed Encounters Encounter Location Date Provider Diagnosis [facility] [place] [address] [place] [phone] 06/25/2024 Milton Sanchez Colon cancer scree dulce [...] Notes * JESSICA WALTERSDOB:1965 (59 yo M)Acc No.[id number]:06/25/2024 COLON WITH MAC Patient: JESSICA MALDONADO Provider: Lisa Sanchez MD :1965 A ge:58 Y S ex:Male Date:06/25/2024 Address: [address] [facility] Pcp:ALAN HENDRICKSON Subjective: * Chief Complaints: * [...] Date: 06/25/2024 Generated for [place] cid/[place]/Dionicioitting on: 06/11/2025 02:36 PM EDT
[2025-06-11 16:10] LABS: Appearance Urine Clear; Glucose Urine UA Negative (Negative); PH 5.5 (5.0-9.0); Specific Gravity - Urine 1.015 (1.005-1.025)
[2025-06-11 16:12] LABS: MANUAL DIFF FLAG NO
[2025-06-11 16:15] LABS: Hematocrit 43.1 % (42.0-52.0); Hemoglobin 15.2 g/dl (14.0-18.0); Imm Gran Abs Auto 0.02 X10*3/uL (0.00-0.03); Imm Gran Pct Auto 0.4 % (0.0-0.4); Lymphocytes Absolute Auto 1.5 X10*3/uL (1.2-4.9); Mean Corpuscular HGB Conc 35.3 g/dl (31.0-36.0); Mean Corpuscular Hemoglobin 30.5 pg (27.0-33.0); Mean Corpuscular Volume 86.4 fL (80.0-98.0); NRBC Abs Auto 0.000 X10*3/uL (0.0-0.012); NRBC Pct Auto 0.0 /100WBC (0.0-0.2); Platelet Count 236 X10*3/uL (160-400); Red Blood Count 4.99 X10*6/uL (4.60-5.80); White Blood Count 5.2 X10*3/uL (4.8-10.8)
[2025-06-11 16:39] LABS: Alanine Aminotransferase 21 U/L (0-40); Albumin Level 4.2 g/dL (3.5-5.0); Alkaline Phosphatase 60 U/L (39-117); Anion Gap 10 (12-20); Aspartate Amino Transferase 34 U/L (5-37); Blood Urea Nitrogen 20 mg/dL (9-16); Calcium 9.1 mg/dL (8.4-10.2); Carbon Dioxide 25 mmol/L (22-29); Chloride 107 mmol/L (96-108); Cholesterol 113 mg/dL (<200); Estimated Glomerular Filt Rate > 60; HDL Cholesterol 29 mg/dL (>40); Potassium 4.2 mmol/L (3.3-5.1); Sodium 138 mmol/L (135-145); Total Protein 6.8 g/dL (6.5-8.0); Triglycerides 71 mg/dL (<150)
[2025-06-11 17:21] LABS: PSA,Total (Free>4and<10) 11.91 ng/mL (0.00-4.00)
== END 2025-06-11 13:55 | disposition home or self-care (01) ==
LOC: HO.HMGCLDS 13:54
PROVIDERS: Urology; PCP Nurse Practitioner Family; Visit Provider Nurse Practitioner Family
DX: Z00.01 Encounter for general adult medical examination with abnormal findings (principal); R97.20 Elevated prostate specific antigen [PSA]; E11.9 Type 2 diabetes mellitus without complications; R74.8 Abnormal levels of other serum enzymes; K76.0 Fatty (change of) liver, not elsewhere classified
CPT/HCPCS: 36415; 80053; 80061; 81003; 84153; 84443; 85025; 86015

== ENCOUNTER 2025-06-24 08:18 | Outpatient (REF) | payer OTHER, SELFPAY ==
--- OUTSIDE RECORDS SUMMARY | 2024-06-25 04:30 | XMS_ITS ---
Author Organization [facility] Address [address] [place] [address] Care Team Providers Care Drier Take Off Tender Name Role Phone ALAN HENDRICKSON Primary Care Provider Milton Jimenez [phone] REASON FOR VISIT screening,hx polyps ,fm hx colon ca Problems Problem Type SNOMED Code ICD Code Onset Dates Problem Status W/U Status Risk Notes Problem History of polyp of colon (situation) (849871822) Personal history of colonic polyps (Z86.010) Active confirmed Problem Diverticulosis o f large intestine without perforation or abscess without bleeding (K57.30) Active confirmed Encounters Encounter Location Date Provider Diagnosis [facility] [place] Outpatient [address] [place], [place] [phone] 06/25/2024 Milton Sanchez Colon cancer scree dulce [...] Notes * JESSICA WALTERSDOB:1965 (59 yo M)Acc No.[id number]:06/25/2024 COLON WITH MAC Patient: JESSICA MALDONADO Provider: Lisa Sanchez MD :1965 A ge:58 Y S ex:Male Date:06/25/2024 Address[address] [facility] Pcp:ALAN HENDRICKSON Subjective: * Chief Complaints: * [...] Date: 06/25/2024 Generated for [place] cid/[place]/Dionicioitting on: 06/24/2025 08:38 AM EDT
--- NOTE | ~2025-06-24 | MR_ITS ---
EXAMINATION: MR PROSTATE WITHOUT THEN WITH IV CONTRAST HISTORY: R97.20 - Elevated prostate specific antigen [PSA] TECHNIQUE: 1.5T body coil survey of the pelvis was performed. Phase array coil imaging of the prostate was performed in multiplanar high resolution axial, coronal, sagittal fast spin echo T2 and axial T1 weighted imaging sequences. Axial diffusion imaging at intermediate and high field performed with ADC mapping. Next, 9 mL Gadavist was given by intravenous infusion, and dynamic axial imaging performed. 3-D reconstructions and post-processing were performed on an independent workstation by the radiologist for biopsy planning using image fusion. COMPARISON: There are no prior studies available for comparison. CLINICAL DATA: Most recent PSA: 11.91 ng/mL on 06/11/2025. PSA Density: 0.25 ng/mL squared Prostate Biopsy: Negative biopsy on 02/07/2024. FINDINGS: Prostate size: 4.6 x 5.3 x 3.7 cm. Calculated prostate volume is 46.9 mL. Hemorrhage: None. Transitional Zone: There is moderate heterogeneous nodular hypertrophy of the transitional zone. There is an area of interest as described below: Area of interest #1: Location: Anterior periurethral tissue at the apex (series 8, images 21-24) measuring 1.7 cm in greatest dimension. DWI PI-RADS v2.1 score: 5 T2 PI-RADS v2.1 score: 5 DCE PI-RADS v2.1 score: + Overall PI-RADS v2.1 score: 5 Capsular contact: None Extracapsular extension: None Seminal vesicle invasion: None Neurovascular bundle involvement: None Peripheral Zone: There is an area of interest in the peripheral zone as described below: Area of interest #2: Location: Right posterior peripheral zone in the mid gland/base (series 8, images 16-17) measuring 11 x 4 mm. DWI PI-RADS v2.1 score: 3 T2 PI-RADS v2.1 score: 3 DCE PI-RADS v2.1 score: - Overall PI-RADS v2.1 score: 3 Capsular contact: yes Extracapsular extension: None Seminal vesicle invasion: None Neurovascular bundle involvement: None Seminal Vesicles/Ejaculatory Ducts: Symmetric and normal in signal and caliber. Pelvic Lymph Nodes: No obturator or internal iliac lymph nodes meeting size criteria for adenopathy. Marrow Signal: Normal marrow signal and enhancement without focal lesion identified. MR/MR Prostate wo/w con IMPRESSION: 1. Area of interest in the anterior periurethral tissues at the apex, highly suspicious for clinically significant prostate carcinoma. 2. Area of interest in the right posterior peripheral zone in the mid gland/base which is equivocal for clinically significant prostate carcinoma. If biopsy is to be performed, sampling of this region is also recommended. PI-RADS 5: Very high (clinically significant cancer is highly likely to be present) PI-RADS Assessment Categories PI-RADS 1: Very low (clinically significant cancer is highly unlikely to be present) PI-RADS 2: Low (clinically significant cancer is unlikely to be present) PI-RADS 3: Intermediate (the presence of clinically significant cancer is equivocal) PI-RADS 4: High (clinically significant cancer is likely to be present) PI-RADS 5: Very high (clinically significant cancer is highly likely to be present) [employer]. MR Prostate Imaging Reporting and Data System version 2.1. [email or web address] Electronically signed by: Milton Pagan MD 06/24/2025 10:44 AM EDT
--- NOTE | ~2025-06-24 | MR_ITS ---
3-D reconstructions and postprocessing were performed on independent workstation by the radiologist for biopsy planning using image fusion. Please see MR prostate report. Electronically signed by: Milton Pagan MD 06/25/2025 09:25 AM EDT RP
--- OUTSIDE RECORDS SUMMARY | 2025-06-24 08:39 | XMS_ITS | Patient Health Record ---
Author Organization [facility] Address [address] [place] [address] Care Team Providers Care Hand Hose Cutter Name Role Phone Shimon Griffin Primary Care Provider Unabaltazar glenda Frederick Lei Unavailable [phone] Allergies No Known Allergies Reason For Referral No Information Medications Medication SIG (Take, Route, Frequency, Duration) Notes Start Date End Date Status Viagra 100 MG 1 tablet as needed O rally Once a day; Duration: 30 day(s) Active Lisinopril 5 MG 1 tablet Orally Once a day; Duration: 30 day(s) Active Vitamin D 50 MCG (1999 [place]) 1 tablet Oral ly Once a day; Duration: 30 day(s) Active Atorvastatin Calcium 10 MG 1 tablet Oral ly Once a day; Duration: 30 day(s) Active Chlorthalidone 25 MG 1 tablet in the mor dulce with food Orally Once a day; Duration: 30 day(s) Active Ciclopirox 0.77 % 1 application to aff ected area Externally Twice a day; Duration: 365 days Active Social History Tobacco Use: [...] Insured Coverage Start Date Coverage End Date [facility] [address] [place] [address] [phone] [id number] Boris Stack Self - patient is the insured Medical (General) History Medical History History ICD Code high blood pressure varicose veins Cholesterol Prostate conditions -enlarged Surgical History Surgery Date(Month/Year) laser treatment for varicose veins
== END 2025-06-24 08:19 | disposition home or self-care (01) ==
LOC: HO.MRI 08:18
PROVIDERS: PCP Nurse Practitioner Family; Visit Provider Urology
DX: R97.20 Elevated prostate specific antigen [PSA] (principal)
CPT/HCPCS: 72197; 76377; A9585

== ENCOUNTER → 2025-06-24 08:54 | Outpatient (BNV) | payer OTHER, SELFPAY | PROVIDERS: PCP Nurse Practitioner Family; Visit Provider Radiology Diagnostic Radiology | DX: R97.20 Elevated prostate specific antigen [PSA] (principal) | CPT/HCPCS: 72197; 76377 ==

== ENCOUNTER 2025-07-19 11:14 | Outpatient (AMB) | payer OTHER, SELFPAY ==
--- OUTSIDE RECORDS SUMMARY | 2024-03-12 05:30 | XMS_ITS ---
Author Organization [facility] Address [address] [place] [address] Care Team Providers Care Montessori Program Director Name Role Phone ALAN HENDRICKSON Primary Care Provider Milton Jimenez [phone] REASON FOR VISIT screening,hx polyps,fam hx colon ca Encounters Encounter Location Date Provider Diagnosis [facility] [place] [address] [place] [id number] 03/12/2024 Milton Sanchez Plan Of Treatment No Information Progress Notes * JESSICA WALTERSDOB:1965 (59 yo M)Acc No.[id number]:03/12/2024 COLON WITH MAC Patient: JESSICA MALDONADO Provider: Lisa Sanchez MD :1965 A ge:58 Y S ex:Male Date:03/12/2024 Address:[address] [place] [address] [address] , [id number] Pcp:ALAN HENDRICKSON Subjective: * Chief Complaints: * [...] 0 03/12/2024 Generated for Amyi ng/Faxing/eTransmitting on: 0 07/19/2025 01:19 PM EDT
--- OUTSIDE RECORDS SUMMARY | 2024-06-25 04:30 | XMS_ITS ---
Author Organization [facility] Address [address] [place] [address] Care Team Providers Care Marketing Team Lead Name Role Phone ALAN HENDRICKSON Primary Care Provider Milton Jimenez [phone] REASON FOR VISIT screening,hx polyps ,fm hx colon ca Problems Problem Type SNOMED Code ICD Code Onset Dates Problem Status W/U Status Risk Notes Problem History of polyp of colon (situation) (079184005) Personal history of colonic polyps (Z86.010) Active confirmed Problem Diverticular disease of colon (564644848) Diverticulosis of large intestine without perforation or abscess without bleeding (K57.30) Active confirmed Encounters Encounter Location Date Provider Diagnosis [facility] [place] Outpatient [address] [place] [phone] 06/25/2024 Milton Sanchez Colon cancer scree dulce [...] Notes * JESSICA WALTERSDOB:1965 (59 yo M)Acc No.[id number]:06/25/2024 COLON WITH MAC Patient: JESSICA MALDONADO Provider: Lisa Sanchez MD :1965 A ge:58 Y S ex:Male Date:06/25/2024 Address: [address] [facility] Pcp:ALAN HENDRICKSON Subjective: * Chief Complaints: * [...] Date: 06/25/2024 Generated for [place] cid/[place]/Dionicioitting on: 07/19/2025 01:19 PM EDT
--- NOTE | 2025-07-19 11:26 | A.OFFVIS_ITS ---
Intake Visit Reasons: 7m/MRI/PSA Intake Note: Patient presents for 7m/MRI/PSA * 06/11 Total PSA:11.91 * 06/24 Prostate MRI Urology Med:Sildenafil Antibiotic Allergy: None Blood Thinner: None PVR:0ml Oncology Radiation Physician Required: No Allergies No Known Allergies Allergy (Verified 07/19/25 11:28) Medication List - Last Reconciled 07/19/25 by Shant Styles MD amlodipine 2.5 mg PO DAILY 90 days atorvastatin 10 mg PO DAILY 90 days blood sugar diagnostic ([employer] Verio test strips) Test blood sugar once a day blood-glucose meter ([employer] Verio Reflect Meter) Test blood sugar once a day chlorthalidone 25 mg PO DAILY cholecalciferol (vitamin D3) 50 mcg PO DAILY lancets ([employer] Delica Plus Lancet) Test blood sugar once a day lisinopril 5 mg PO DAILY sildenafil 100 mg PO DAILY PRN HPI Comments Details: 07/19/25--Boris is a 59-year-old male who is followed for elevated PSA he previously had prostate biopsy resulting in benign prostate tissue he is here today to review MRI results. History of Present Illness The patient is a 59-year-old male presenting with elevated PSA levels. Boris has been followed for elevated PSA, and a previous prostate biopsy revealed benign prostate tissue. Recently, an MRI was conducted, which identified two small areas of concern within the prostate. The PSA level has increased to 11.9. Results - MRI: Two small areas of concern identified in the prostate --Area of interest #1: Location: Anterior periurethral tissue at the apex (series 8, images 21-24) measuring 1.7 cm in greatest dimension. --Area of interest #2: Location: Right posterior peripheral zone in the mid gland/base (series 8, images 16-17) measuring 11 x 4 mm. - PSA level: 11.9 Plan 1. Elevated Psa - Plan to repeat prostate biopsy under anesthesia to target specific areas identified in MRI. - Monitor PSA levels and prostate growth. 12/20/24--Boris is here for telehealth follow-up elevated PSA. He did not tolerate Proscar. He had prostate biopsy done, 02/07/2024-results note benign prostate tissue. PSA 11/14/2023--6.99 ng/mL. I have reviewed repeat PSA---6.35 ng/mL. I have discussed continue to monitor will check an MRI prostate and repeat PSA in 6 months. 11/19/2024--Boris is here for follow-up elevated PSA. He has been on Proscar. He states he has not been compliant with the medication because it causes him to have no energy when he takes it. When he does not take it he feels fine. He did not have his PSA done prior to this visit. Will discontinue Proscar for now follow-up with him to discuss PSA results once he has lab completed. 03/22/2024--Boris has been followed for elevated PSA and BPH. He had prostate biopsy done, 02/07/2024-results note benign prostate tissue. PSA 11/14/2023--6.99 ng/mL. Discussed Proscar 5 mg daily. Follow-up in 8 months PSA prior. 11/25/2023-- Boris is a 58-year-old male who presents telehealth visit for elevated PSA. He was last seen on 09/19/2023. I am discussed in repeat PSA which is 6.99. I have discussed further evaluation with Transrectal Ultrasound guided biopsy of the prostate. Discussed risks to include but not limited to pain, blood in stool, urine and semen, septicemia, need to repeat biopsy. Discussed ultrasound retroperitoneum results--kidneys within normal limits estimated prostate volume 52 mL, prostatic calcifications noted. 09/19/2023?He is present today for an evaluation of elevated PSA. Laboratory review ? PSA ? 02/04/2020 was 4.08 ng/mL and on 07/06/2023 was 5.69 ng/mL. Patient states that in terms of LUTS of prostatitis he feels that the symptoms are improved on tamsulosin. Patient states that he is also concerned about a lump on the shaft of his penis. Examination: currently no abnormal findings noted on genitalia. Prostate examination: smooth, moderately enlarged prostate. Plan:Repeat PSA, US retroperitoneum, Follow-up in 7 weeks. [facility] Medical History Anesthesia complication Elevated cholesterol BPH (benign prostatic hyperplasia) HTN (hypertension) Surgical History Hx of prostate biopsy Hx of excision of mass Hx of varicose vein ligation and stripping Hx of eye surgery Hx of colonoscopy Social History Housing: Apartment Patient Tobacco Use Status: Former Tobacco user Tobacco use type: Cigarette e-Cigarette/Vaping Use: Never Used Second Hand Smoke Exposure: No service: No Current occupational status: employed Current occupation: [employer] Current occupational exposures/hazards: No Cognitive needs: No Hearing needs: No Vision needs: No Review of Systems Const All systems reviewed & are unremarkable except as noted in HPI and below Reports no additional complaints Eyes Reports no additional complaints ENT Reports no additional complaints Card Reports no additional complaints Resp Reports no additional complaints GI Reports no additional complaints Reports as per HPI Musc Reports no additional complaints Skin/Breast Reports system reviewed and no additional complaints, except as documented Neuro Reports no additional complaints Psych Reports no additional complaints Endo Reports no additional complaints Esdras/Lymph Reports no additional complaints Aller/Immun Reports no additional complaints Results Reviewed Results Reviewed: Date of Service: 06/24/25 EXAMINATION: MR PROSTATE WITHOUT THEN WITH IV CONTRAST HISTORY: R97.20 - Elevated prostate specific antigen [PSA] TECHNIQUE: 1.5T body coil survey of the pelvis was performed. Phase array coil imaging of the prostate was performed in multiplanar high resolution axial, coronal, sagittal fast spin echo T2 and axial T1 weighted imaging sequences. Axial diffusion imaging at intermediate and high field performed with ADC mapping. Next, 9 mL Gadavist was given by intravenous infusion, and dynamic axial imaging performed. 3-D reconstructions and post-processing were performed on an independent workstation by the radiologist for biopsy planning using image fusion. COMPARISON: There are no prior studies available for comparison. CLINICAL DATA: Most recent PSA: 11.91 ng/mL on 06/11/2025. PSA Density: 0.25 ng/mL squared Prostate Biopsy: Negative biopsy on 02/07/2024. FINDINGS: Prostate size: 4.6 x 5.3 x 3.7 cm. Calculated prostate volume is 46.9 mL. Hemorrhage: None. Transitional Zone: There is moderate heterogeneous nodular hypertrophy of the transitional zone. There is an area of interest as described below: Area of interest #1: Location: Anterior periurethral tissue at the apex (series 8, images 21-24) measuring 1.7 cm in greatest dimension. DWI PI-RADS v2.1 score: 5 T2 PI-RADS v2.1 score: 5 DCE PI-RADS v2.1 score: + Overall PI-RADS v2.1 score: 5 Capsular contact: None Extracapsular extension: None Seminal vesicle invasion: None Neurovascular bundle involvement: None Peripheral Zone: There is an area of interest in the peripheral zone as described below: Area of interest #2: Location: Right posterior peripheral zone in the mid gland/base (series 8, images 16-17) measuring 11 x 4 mm. DWI PI-RADS v2.1 score: 3 T2 PI-RADS v2.1 score: 3 DCE PI-RADS v2.1 score: - Overall PI-RADS v2.1 score: 3 Capsular contact: yes Extracapsular extension: None Seminal vesicle invasion: None Neurovascular bundle involvement: None Seminal Vesicles/Ejaculatory Ducts: Symmetric and normal in signal and caliber. Pelvic Lymph Nodes: No obturator or internal iliac lymph nodes meeting size criteria for adenopathy. Marrow Signal: Normal marrow signal and enhancement without focal lesion identified. IMPRESSION: 1. Area of interest in the anterior periurethral tissues at the apex, highly suspicious for clinically significant prostate carcinoma. 2. Area of interest in the right posterior peripheral zone in the mid gland/base which is equivocal for clinically significant prostate carcinoma. If biopsy is to be performed, sampling of this region is also recommended. PI-RADS 5: Very high (clinically significant cancer is highly likely to be present) PI-RADS Assessment Categories PI-RADS 1: Very low (clinically significant cancer is highly unlikely to be present) PI-RADS 2: Low (clinically significant cancer is unlikely to be present) PI-RADS 3: Intermediate (the presence of clinically significant cancer is equivocal) PI-RADS 4: High (clinically significant cancer is likely to be present) PI-RADS 5: Very high (clinically significant cancer is highly likely to be present) Collected: 02/07/24 Location: [facility] Received: 02/07/24 Diagnosis A: Left base lateral: Benign prostatic tissue; negative for malignancy. B: Left base medial: Benign prostatic tissue; negative for malignancy. C: Left mid lateral: Benign prostatic tissue; negative for malignancy. D: Left mid medial: Benign prostatic tissue; negative for malignancy. E: Left apex lateral: Benign prostatic tissue; negative for malignancy. F: Left apex medial: Benign prostatic tissue; negative for malignancy. G: Right base lateral: Benign prostatic tissue; negative for malignancy. H: Right base medial: Benign prostatic tissue; negative for malignancy. I: Right mid lateral: Benign prostatic tissue; negative for malignancy. J: Right mid medial: Benign prostatic tissue; negative for malignancy. K: Right apex lateral: Prostatic stroma only; no epithelium present; negative for malignancy. L: Right apex medial: Prostatic stroma only; no epithelium present; negative for malignancy. Clinical History Elevated PSA Date of Service: 11/14/23 EXAMINATION: US RETROPERITONEAL COMPLETE (RENAL) CLINICAL INFORMATION: Elevated prostate specific antigen. COMPARISON: None available. TECHNIQUE: Real-time imaging of the kidneys and bladder. Limited visualization due to bowel gas. FINDINGS: RIGHT KIDNEY: 10.9 x 5.2 x 5.7 cm (SAG x AP x TRV). No hydronephrosis. No renal calculi. Renal cortical thickness is normal. Limited visualization. LEFT KIDNEY: 11.3 x 5.1 x 4.9 cm (SAG x AP x TRV). No hydronephrosis. No renal calculi. Renal cortical thickness is normal. Limited visualization. BLADDER: Partially distended. Bilateral ureteral jets are demonstrated. Prevoid bladder volume is 200 mL. Postvoid bladder volume is 16 mL. ADDITIONAL FINDINGS: Prostate volume 52 mL, enlarged. Echogenic foci characteristic of calcifications within the prostate. IMPRESSION: 1. No hydronephrosis. No renal calculi. Limited visualization. 2. Prostate volume 52 mL, enlarged. Echogenic foci characteristic of calcifications within the prostate. Assessment & Plan Assessment & Plan (1) Elevated PSA: Code(s): R97.20 - Elevated prostate specific antigen [PSA] Category: Medical (2) BPH (benign prostatic hyperplasia): Code(s): N40.0 - Benign prostatic hyperplasia without lower urinary tract symptoms Category: Medical (3) Abnormal MRI: Code(s): R93.89 - Abnormal findings on diagnostic imaging of other specified body structures Category: Medical Plan MRI targeted prostate biopsy Orders: Orders AMB Urinalysis Automated Today Z13.9 - Encounter for screening, unspecified AMB Post Void Residual by ultrasound Today R31.29 - Other microscopic hematuria Patient Instructions: The patient had an opportunity to ask questions regarding treatment plan. The patient expressed understanding and agreement with the above treatment plan. The patient is aware they should contact our office by phone for worsening of their current condition or the appearance of new symptoms. Compliance is encouraged with any medications and followup testing that is ordered. It is a privilege to be allowed the opportunity to participate in the urologic care of your patient. If you have any questions or concerns regarding treatment for the above conditions please do not hesitate to contact me. The office telephone contact is [phone]. This note is constructed in part using voice recognition software. While every effort has been made to ensure accuracy metalizer errors may have been included. Yours sincerely, Shant Styles MD Scribe Plan - Not visible on output: Patient was informed and verbally consented to the use of an ambient scribe for clinic note documentation during this visit. Coding Level of Care Code Est Pt Level 4 (40816) Diagnoses Elevated PSA R97.20 BPH (benign prostatic hyperplasia) N40.0 Abnormal MRI R93.89
--- OUTSIDE RECORDS SUMMARY | 2025-07-19 13:20 | XMS_ITS | Patient Health Record ---
Author Organization [facility] Address [address] [place] [address] Care Team Providers Care Business Machine Operator Name Role Phone ALAN HENDRICKSON Primary Care Provider Milton Jimenez [phone] Allergies No Known Allergies Reason For Referral [...] for 30 Active Vitamin D3 50 MCG (2000 UT) TAKE 1 TABLE T BY MOUTH DAILY. Oral for 30 Active Lisinopril 5 MG 1 tablet Orally Once a day Active Social History Tobacco Use: Social History Observation Description Date Details (start date - stop date) Former Smoker NA - NA Tobacco Use/Smoking Question Answer Notes Patient is a former smoker How long has it been since you last smoked? 5-10 years Alcohol Screen Question Answer Notes Did you have a drink containing alcohol in the p ast year? No Points 0 Interpretation Negative Section Notes: He smokes, but does not use any significant amounts of alcohol Stopped smoking 2010--Uses n icotine gum; does not use any significant amounts of alcohol Stopped smoking 2010--Uses n icotine gum; does not use any significant amounts of alcohol Problems Problem Type SNOMED Code ICD Code Onset Dates Problem Status W/U Status Risk Notes Problem 709191567 Encounter for screening for malignant neoplasm of colon (Z12.11) Active confirmed Problem 072570824 History of adenomatous polyp of colon (Z86.010) Active confirmed Problem History of polyp of colon (situation) (117137101) Personal history of colonic polyps (Z86.010) Active confirmed Problem Diverticular disease of colon (452498649) Diverticulosis of large intestine without perforation or abscess without bleeding (K57.30) Active confirmed Problem 757116488 Preprocedural examination (Z01.818) Active confirmed Problem 282020079 Family history o f colon cancer (Z80.0) Active confirmed Plan Of Treatment Future Test Test Name Order Date COLONOSCOPY 09/14/2011 COLONOSCOPY 03/07/2018 COLONOSCOPY 12/13/2023 Insurance Providers Payer Name Payer Address Payer Phone Subscriber Number Group Number Insured Name Patient Relationship to Insured Coverage Start Date Coverage End Date [facility] [address] [place] [phone] [id number] JESSICA WALTERS Self - patient is the insured Medical (General) History Medical History History ICD Code Denies [place],DM,CVA,Lung disease,renal dise ase HTN Colonoscopy 11/2011--1 small [...]
--- OUTSIDE RECORDS SUMMARY | 2025-07-19 13:20 | XMS_ITS | Patient Health Record ---
[facility] Address [address] [place] [address] Care Team Providers Care Casting Operator Name Role Phone Shimon Griffin Primary Care Provider Unabaltazar glenda Frederick Lei Unavailable [phone] Allergies No Known Allergies Reason For Referral No Information Medications Medication SIG (Take, Route, Frequency, Duration) Notes Start Date End Date Status Viagra 100 MG 1 tablet as needed O rally Once a day; Duration: 30 day(s) Active Lisinopril 5 MG 1 tablet Orally Once a day; Duration: 30 day(s) Active Vitamin D 50 MCG (1999) 1 tablet Oral ly Once a day; [...] Insured Coverage Start Date Coverage End Date [facility] [address] [facility] [place] [id number] [phone] [id number] Boris Stack Self - patient is the insured Medical (General) History Medical History History ICD Code high blood pressure varicose veins Cholesterol Prostate conditions -enlarged Surgical History Surgery Date(Month/Year) laser treatment for varicose veins
== END 2025-07-19 12:18 | disposition home or self-care (01) ==
LOC: HO.HUSH 11:15
PROVIDERS: PCP Nurse Practitioner Family; Visit Provider Urology
DX: R97.20 Elevated prostate specific antigen [PSA] (principal); N40.0 Benign prostatic hyperplasia without lower urinary tract symptoms; R93.89 Abnormal findings on diagnostic imaging of other specified body structures; Z13.9 Encounter for screening, unspecified
CPT/HCPCS: 99214

== ENCOUNTER → 2025-07-19 11:14 | Outpatient (BNVA) | payer OTHER, SELFPAY | PROVIDERS: PCP Nurse Practitioner Family; Visit Provider Urology | DX: N40.0 Benign prostatic hyperplasia without lower urinary tract symptoms (principal) | CPT/HCPCS: 81003 ==

== ENCOUNTER 2025-09-02 07:13 | Day surgery (SDC) | payer OTHER, SELFPAY ==
--- OUTSIDE RECORDS SUMMARY | 2024-03-12 05:30 | XMS_ITS ---
Author Organization [facility] Address [address] [place] [address] Care Team Providers Care Liquor Maker Name Role Phone ALAN HENDRICKSON Primary Care Provider Milton Jimenez [phone] REASON FOR VISIT screening,hx polyps,fam hx colon ca Encounters Encounter Location Date Provider Diagnosis [facility] [place] [address] [place] [phone] 03/12/2024 Milton Sanchez Plan Of Treatment No Information Progress Notes * JESSICA WALTERSDOB:1965 (59 yo M)Acc No.[id number]:03/12/2024 COLON WITH MAC Patient: JESSICA MALDONADO Provider: Lisa Sanchez MD :1965 A ge:58 Y S ex:Male Date:03/12/2024 Address:[address] [place] [address] [address] , [id number] Pcp:ALAN HENDRICKSON Subjective: * Chief Complaints: * [...] 03/12/2024 Generated for Amyi ng/Faxing/eTransmitting on: 0 08/06/2025 11:43 AM EDT
--- OUTSIDE RECORDS SUMMARY | 2024-06-25 04:30 | XMS_ITS ---
Author Organization [facility] Address [address] [place] [address] Care Team Providers Care Combine Driver Name Role Phone ALAN HENDRICKSON Primary Care Provider Milton Jimenez [phone] REASON FOR VISIT screening,hx polyps ,fm hx colon ca Problems Problem Type SNOMED Code ICD Code Onset Dates Problem Status W/U Status Risk Notes Problem History of polyp of colon (situation) (749644185) Personal history of colonic polyps (Z86.010) Active confirmed Problem Diverticular disease of colon (865916710) Diverticulosis of large intestine without perforation or abscess without bleeding (K57.30) Active confirmed Encounters Encounter Location Date Provider Diagnosis [facility] [place] Out[place] [address] [place] [id number] 06/25/2024 Milton Sanchez Colon cancer scree dulce [...] Notes * JESSICA WALTERSDOB:1965 (59 yo M)Acc No.[id number]:06/25/2024 COLON WITH MAC Patient: JESSICA MALDONADO Provider: Lisa Sanchez MD :1965 A ge:58 Y S ex:Male Date:06/25/2024 Address: [address] [facility] Pcp:ALAN HENDRICKSON Subjective: * Chief Complaints: * [...] Pending * Provider: Lisa Sanchez MD Date: 06/25/2024 Generated for [place] cid/[place]/Dionicioitting on: 0 08/06/2025 11:43 AM EDT
--- OUTSIDE RECORDS SUMMARY | 2025-08-06 11:43 | XMS_ITS | Patient Health Record ---
Author Organization [facility] Address [address] [place] [address] Care Team Providers Care Christian Science Nurse Name Role Phone ALAN HENDRICKSON Primary Care Provider Milton Jimenez [phone] Allergies No Known Allergies Reason For Referral [...] Problem Status W/U Status Risk Notes Problem 255190762 Encounter for screening for malignant neoplasm of colon (Z12.11) Active confirmed Problem 502209759 History of adenomatous polyp of colon (Z86.010) Active confirmed Problem History of polyp of colon (situation) (929119495) Personal history of colonic polyps (Z86.010) Active confirmed Problem Diverticular disease of colon (411566857) Diverticulosis of large intestine without perforation or abscess without bleeding (K57.30) Active confirmed Problem 072129181 Preprocedural examination (Z01.818) Active confirmed Problem 635334803 Family history o f colon cancer (Z80.0) Active confirmed Plan Of Treatment Future Test Test Name Order Date COLONOSCOPY 09/14/2011 COLONOSCOPY 03/07/2018 COLONOSCOPY 12/13/2023 Insurance Providers Payer Name Payer Address Payer Phone Subscriber Number Group Number Insured Name Patient Relationship to Insured Coverage Start Date Coverage End Date [facility] [address] [place] [address] [id number] JESSICA WALTERS Self - patient is the insured Medical (General) History Medical History History ICD Code Denies [place],DM,CVA,Lung disease,renal dise ase HTN Colonoscopy 11/2011--1 small [...]
--- OUTSIDE RECORDS SUMMARY | 2025-08-06 11:43 | XMS_ITS | Patient Health Record ---
[facility] Organization [facility] Address [address] [place] [address] Care Team Providers Care Blower Mechanic Name Role Phone Shimon Griffin Primary Care Provider Unabaltazar glenda Frederick Lei Unavailable [phone] Allergies No Known Allergies Reason For Referral [...] Insured Coverage Start Date Coverage End Date [facility] [address] [facility] [place] [place] [address] [phone] [id number] Boris Stack Self - patient is the insured Medical (General) History Medical History History ICD Code high blood pressure varicose veins Cholesterol Prostate conditions -enlarged Surgical History Surgery Date(Month/Year) laser treatment for varicose veins
--- NOTE | 2025-08-28 14:18 | P.CONAN_ITS ---
Documented by User: Swetha Palacios NP 08/28/25 14:20 HPI - Anesthesia Eval Consult details Narrative: 59 yr old male for targeted prostate needle biopsy Med Hx notes pt sensitive to anesthesia: had colonoscopy with MAC in 2023, no complications noted on anesthesia report. PMFSH Active Problems Active Problems: All Active Problems Abnormal MRI (Acute) Encounter for routine adult physical exam with abnormal findings (Acute) Fatty liver (Acute) Diabetes (Acute) Microscopic hematuria (Acute) Elevated liver enzymes (Acute) BPH (benign prostatic hyperplasia) (Acute) HTN (hypertension) (Acute) Elevated PSA (Acute) Screening for colon cancer (Acute) Screening for prostate cancer (Acute) Physical exam (Acute) Male erectile dysfunction, unspecified (Acute) Toenail fungus (Acute) Past Medical History Medical History Anesthesia complication Elevated cholesterol BPH (benign prostatic hyperplasia) HTN (hypertension) Surgical History Surgical History Hx of prostate biopsy Hx of excision of mass Hx of varicose vein ligation and stripping Hx of eye surgery Hx of colonoscopy Social History Social History Housing: Apartment Are you a primary care support representative to a significant other at home: No Do you presently have visiting nurse or other home services: No Patient Tobacco Use Status: Former Tobacco user Tobacco use type: Cigarette e-Cigarette/Vaping Use: Never Used Second Hand Smoke Exposure: No Use of substances other than those prescribed or required for medical reasons: Yes Substance Use Frequency: Daily Have you been hit, kicked, punched, or otherwise hurt by someone within the past year? If so, by whom?: No Are you DNR?: No Advance Directives: No Advance Directives Information Provided: Yes Advance Directives on File: No service: No Current occupational status: employed Current occupation: [employer] Current occupational exposures/hazards: No Cognitive needs: No Hearing needs: No Vision needs: No Meds Allergies Allergy/AdvReac Type Severity Reaction Status Date / Time No Known Allergies Allergy Verified 07/19/25 11:28 Documented by User: Lenny Lai MD 09/02/25 08:25 [facility] Past Medical History Medical History Anesthesia complication Elevated cholesterol BPH (benign prostatic hyperplasia) HTN (hypertension) Functional capacity: independent ambulation Family History Family history of problems with anesthesia: No Surgical History Surgical History Hx of prostate biopsy Hx of excision of mass Hx of varicose vein ligation and stripping Hx of eye surgery Hx of colonoscopy History of Problems with Anesthesia: Yes (sweating and agitation after GA) Social History Social History Housing: Apartment Are you a primary care support representative to a significant other at home: No Do you presently have visiting nurse or other home services: No Patient Tobacco Use Status: Former Tobacco user Tobacco use type: Cigarette e-Cigarette/Vaping Use: Never Used Second Hand Smoke Exposure: No Use of substances other than those prescribed or required for medical reasons: Yes Substance Use Frequency: Daily Have you been hit, kicked, punched, or otherwise hurt by someone within the past year? If so, by whom?: No Are you DNR?: No Advance Directives: No Advance Directives Information Provided: Yes Advance Directives on File: No service: No Current occupational status: employed Current occupation: [employer] Current occupational exposures/hazards: No Cognitive needs: No Hearing needs: No Vision needs: No Meds Allergies Allergy/AdvReac Type Severity Reaction Status Date / Time No Known Allergies Allergy Verified 07/19/25 11:28 Exam Airway Mallampati Class: III TM Dist: >3cm Neck ROM: Full Loose/Missing/Broken Teeth: No Heart: RRR Lungs: CTA Assessment and Plan Assessment Anesthesia Assessment: Anesthesia Plan Discussed and Chart Reviewed Final Anesthetic Review Family History of Problems with Anesthesia: No History of Problems with Anesthesia: Yes (sweating and agitation after GA) NPO: Yes ASA Class: II Final Preanesthetic Review: No Changes in Pt Med Stat, Meds/Allgs Chart Reviewed, Consent Obtained/Reviewed and Anes Risks/Benef Reviewed Patient Risk: Low Procedure Risk: Low Anesthetic Plan Anesthetic Plan: MAC: Disposition: Standard PACU
[2025-08-29 07:40] VITALS: BMI 32.1
[2025-09-02 07:38] VITALS: BP 126/72; PULSE 66; RESP 17; TEMP 36.7; O2SAT 97
[2025-09-02] MEDS: Lactated Ringers 1,000 ML 100 ML IVCONT (07:47)
--- NOTE | 2025-09-02 09:43 | MHC.SHP ---
Pre-Procedural Eval Section A - 24 Hr Update-Section A only Date of Service: 09/02/25 The patient is an INPATIENT: No Changes since office visit: No Cold of Flu in the past 2 weeks, No New Medical Problems, No Changes in Medication and No Patient answered all questions The patient has been examined within 24 hours of the surgical procedure. The History & Physical has been completed within 30 days and I have reviewed it.: Yes Section B - Complete if H&P > 30 days Chief Complaint: Elevated prostate specific antigen [PSA] Details of Present Illness: Stereotactic targeted prostate biopsy Allergies: Allergies Allergy/AdvReac Type Severity Reaction Status Date / Time No Known Allergies Allergy Verified 07/19/25 11:28 Plan Diagnosis/Plan: Unchanged (Stereotactic perineal targeted prostate biopsy) I have reviewed the history and physical and performed a pertinent physical examination on my patient. No changes have occurred unless specified. Time Spent With Patient Time: Total time managing care of this patient today ____ minutes.
--- NOTE | 2025-09-02 10:18 | W.PM.OPN ---
Operative Note Operative Note Date of Service: 09/02/25 Narrative: Preoperative diagnosis: Elevated PSA Postoperative diagnosis: Elevated PSA Procedure: 1. transrectal ultrasound-guided pudendal nerve block 2. Prostate Ultrasound image acquisition, registration and 3D model creation 3. Prostate MRI Model and Target fusion with intraoperative prostate ultrasound 3. Transperineal Ultrasound Guided Sterotactic prostate biopsy including saturation biopsy of MRI identified targeted prostate lesions Surgeon: Dr. Josue Sal Anesthetic: Sedation plus local Indications for procedure: Elevated PSA 11.9. Prostate MRI 55 g prostate with 11 mm anterior apical midline lesion Procedure: After informed consent was verified, the patient was brought into the procedure area. Patient identity confirmed. Perioperative antibiotics confirmed. Safety pause time out performed. Anesthesia performed per protocol. Scrotum taped out of operative area. Iodine prep used. Perineal injection of local anesthetic. Digital guided prostate pudendal nerve block performed with 10 cc of 1% lidocaine. 5cc each side. Ultrasound probe was placed per rectum. Ultrasound probe stabilized on a prostate stepper with attached perineal sterotactic targeting grid with 5mm interval holes. Perineal targeting grid A-C covering right prostate and c-F covering left prostate. Numbers 1.0-2.5 covering posterior prostate and 2.5-4.0 covering anterior prostate. [employer] software and hardware platform was used for prostate ultrasound image acquisition, ultrasound image registration, 3D model creation and MRI-US fusion image overlay. Ultrasound placement was made with external grid calibration for height and prostate diameter in both the transverse and longitudinal planes. Prostate was aligned midline and reviewed for transverse and sagittal positioning. The bottom of the prostate was aligned with the 1.0 horizontal positioning on the guidance grid. Once perineal grid calibration was confirmed prostate ultrasound data acquisition was performed with ultrasound sweeping in a transverse fashion. Images were acquired moving from prostate base to apex. This was performed in an even fashion with approx 0.5cm extra length at base and apex. The acquired ultrasound images were then registered to create 3D model boundaries in the operating room. White markers were applied to ultrasound images in transverse and longitudinal sterotactic fashion. [place] and base were marked first followed by conformational boundaries. A three dimensional sterotactic ultrasound model was created using [employer] software. The model was reviewed against acquired ultrasound images and perineal grid alignment was performed. The planned perineal needle sterotactic targeting, based on prior acquisition of MRI imaging, was overlaid on the ultrasound 3D images and targets confirmed through ultrasound review. Adjustments were then made between real time and projected model targeting locations. Based on pre-planning evaluation 15 targets had been identified. Targets have been identified according to template grid positions. Modelled taget locations are reviewed in real time for 3D mapping of location. These included 1 target of PiRADS 3 identified on MRI. Planned saturation biopsy of targeted lesion with 3 needles. Biopsies were performed moving from far left lateral inferior to far right lateral inferior. Non-target biopsies were distributed evenly between left and right prostate lobes. Sterotactic targeting of biopsy needle location was confirmed in real time with longitudinal US prior to biopsy needle firing. Cognitive adjustments to preplanned positions were made as necessary to ensure samples were taken from planned prostate areas particularly regarding depth of biopsy with respect to prostate apex and base. Saturation biopsy was performed on targeted lesions. Biopsy number was dependent on prostate lesion size. Upon biopsy completion probe was removed from the rectum. The patient tolerated the procedure well and was transferred to stable condition in the PACU. Printed instructions regarding antibiotic use and common side effects such as low-grade temperature, potential infection and bleeding were given Pathology: 15 prostate biopsy CPT 86866 Modifier 22 for complexity of procedure execution (Saturation Perineal prostate biopsy) CPT code 38335: Transrectal ultrasound; this is a diagnostic test for evaluation of the prostate and surrounding structures, looking for abnormalities or suspicious areas worrisome for cancer CPT code 42043: Ultrasonic guidance for needle placement (eg, biopsy, aspiration, injection, localization device), imaging supervision and interpretation CPT 70334: 3D rendering with interpretation and reporting of computed tomography (CT), MRI, ultrasound, or other tomographic modality with image postprocessing under concurrent supervision; not requiring image postprocessing on an independent workstation
[2025-09-02 10:25] VITALS: BP 97/52; PULSE 80; RESP 18; TEMP 36.4; O2SAT 93
[2025-09-02 10:30] VITALS: BP 96/62; PULSE 89; RESP 11; O2SAT 96
[2025-09-02 10:35] VITALS: BP 91/54; PULSE 87; RESP 11; O2SAT 97
[2025-09-02 10:40] VITALS: BP 92/57; PULSE 80; RESP 14; O2SAT 96
[2025-09-02 10:55] VITALS: BP 103/64; PULSE 68; RESP 12; TEMP 36.6; O2SAT 96
== END 2025-09-02 13:04 | disposition home or self-care (01) ==
PROVIDERS: PCP Nurse Practitioner Family; Visit Provider Urology
PROC: (CPT 55700; principal; 2025-09-02 09:30)
DX: C61 Malignant neoplasm of prostate (principal); R97.20 Elevated prostate specific antigen [PSA]; N40.0 Benign prostatic hyperplasia without lower urinary tract symptoms; R93.89 Abnormal findings on diagnostic imaging of other specified body structures; I10 Essential (primary) hypertension; E78.00 Pure hypercholesterolemia, unspecified; Z79.899 Other long term (current) drug therapy; Z98.890 Other specified postprocedural states; Z87.891 Personal history of nicotine dependence
CPT/HCPCS: 55706; 88305; 88344; J1596; J2003; J2250; J2704

== ENCOUNTER → 2025-09-02 07:13 | Outpatient (BNV) | payer OTHER, SELFPAY | PROVIDERS: PCP Nurse Practitioner Family; Visit Provider Urology | DX: R97.20 Elevated prostate specific antigen [PSA] (principal) | CPT/HCPCS: 55706 ==

== ENCOUNTER 2025-09-11 13:59 | Outpatient (AMB) | payer OTHER, SELFPAY ==
--- OUTSIDE RECORDS SUMMARY | 2024-03-12 04:30 | XMS_ITS ---
Author Organization [facility] Address [address] [place] [address] Care Team Providers Care Fire Hazard Inspector Name Role Phone ALAN HENDRICKSON Primary Care Provider Milton Jimenez [phone] REASON FOR VISIT screening,hx polyps,fam hx colon ca Encounters Encounter Location Date Provider Diagnosis [facility] [place] [address] [place] [phone] 03/12/2024 Milton Sanchez Plan Of Treatment No Information Progress Notes * JESSICA WALTERSDOB:1965 (59 yo M)Acc No.[id number]:03/12/2024 COLON WITH MAC Patient: JESSICA MALDONADO Provider: Lisa Sanchez MD :1965 A ge:58 Y S ex:Male Date:03/12/2024 Address:[address] [place] [address] [address] , [id number] Pcp:ALAN HENDRICKSON Subjective: * Chief Complaints: * 1 . Screening,hx polyps,fam hx colon ca. * Medical History: Objective: * Vitals: Assessment: Plan: * Treatment: * * The named appointment provid er may or may not be the originator of this progress note, and it is not deemed complete until electronically signed by the appointment provider. Sign off status: Pending * Provider: Lisa Sanchez MD Date: 0 03/12/2024 Generated for Amyi ng/Faxing/eTransmitting on: 1 11/11/2024 05:10 PM EST
--- OUTSIDE RECORDS SUMMARY | 2024-06-25 03:30 | XMS_ITS ---
Author Organization [facility] Address [address] [place] [address] Care Team Providers Care Line Palletizer Name Role Phone ALAN HENDRICKSON Primary Care Provider Milton Jimenez [phone] REASON FOR VISIT screening,hx polyps ,fm hx colon ca Problems Problem Type SNOMED Code ICD Code Onset Dates Problem Status W/U Status Risk Notes Problem History of polyp of colon (situation) (830756578) Personal history of colonic polyps (Z86.010) Active confirmed Problem Diverticular disease of colon (647828206) Diverticulosis of large intestine without perforation or abscess without bleeding (K57.30) Active confirmed Encounters Encounter Location Date Provider Diagnosis [facility] [place] Out[place] [address] [place] [id number] 06/25/2024 Milton Sanchez Colon cancer scree dulce Z12.11 ; Personal history of colonic polyps Z86.010 ; Diverticulosis of large intestine without perforation or abscess without bleeding K57.30 and Other hemorrhoids K64.8 Assessments Encounter Date Diagnosis (ICD Code) Assessment Notes Treatment Notes Treatment Clinical Notes Section Notes 06/25/2024 Colon cancer screening (ICD-10 - Z12.11) 06/25/2024 Personal history of colonic polyps (ICD-10 - Z86.010) 06/25/2024 Diverticulosis of large intestine without perforation or abscess without bleeding (ICD-10 - K57.30) 06/25/2024 Other hemorrhoids (ICD-10 - K64.8) Plan Of Treatment No Information Progress Notes * JESSICA WALTERSDOB:1965 (59 yo M)Acc No.[id number]:06/25/2024 COLON WITH MAC Patient: JESSICA MALDONADO Provider: Lisa Sanchez MD :1965 A ge:58 Y S ex:Male Date:06/25/2024 Address: [id number] Pcp:ALAN HENDRICKSON Subjective: * Chief Complaints: * 1 . Screening,hx polyps ,fm hx colon ca. * Medical History: Objective: * Vitals: Assessment: * Assessment: 1. C olon cancer screening - Z12.11 (Primary) 2 . P ersonal history of colonic polyps - Z86.010 3 . D iverticulosis of large intestine without perforation or abscess without bleeding - K57.30 4 . O ther hemorrhoids - K64.8 ? Plan: * Treatment: * Procedure Codes: 4 5378 DIAGNOSTIC COLONOSCOPY * Preventive Medicine: UMA Screening: C olonoscopy W as interval between colonoscopies three years or more? Y es, W as last colonoscopy performed three or more years ago? Y es. * * The named appointment provid er may or may not be the originator of this progress note, and it is not deemed complete until electronically signed by the appointment provider. Sign off status: Pending * Provider: Lisa Sanchez MD Date: 0 06/25/2024 Generated for Fel[place] cid/[place]/Dionicioitting on: 11/11/2024 05:10 PM EST
--- NOTE | 2025-09-11 14:01 | MHC.OFFVIS ---
Intake Visit Reasons: Prostate Biopsy results Intake Note: Patient is present for Telephone Biopsy Results Orthopedic Shoe Fitter Required: No Accompanied by: Self / Same As Patient Allergies No Known Allergies Allergy (Verified 09/11/25 14:03) HPI Comments Details: Miguel Ángel is a pleasant male. He is a patient of Dr. Bullard. He is seen for the following urologic conditions - prostate cancer Telemedicine Evaluation 15 min Consultation [employer] [place] Video Discussed biopsy results Low volume favorable intermediate risk Plan genetics 4 week follow-up discussion office Prostate cancer -low volume, favorable intermediate, organ confined disease Histologic type: Acinar adenocarcinoma Histologic grade: 3+4=7 (E and F) % of pattern 4: 10% (E and F) Grade group: 2 Tumor quantitation: Number cores positive: 2 Total number of cores: 15 Periprostatic fat inv.: Not identified Seminal vesicle inv.: Not identified Perineural inv.: Not identified LVI: Not identified MRI 45 g prostate PSA 11 07/19/25--Boris is a 59-year-old male who is followed for elevated PSA he previously had prostate biopsy resulting in benign prostate tissue he is here today to review MRI results. History of Present Illness The patient is a 59-year-old male presenting with elevated PSA levels. Boris has been followed for elevated PSA, and a previous prostate biopsy revealed benign prostate tissue. Recently, an MRI was conducted, which identified two small areas of concern within the prostate. The PSA level has increased to 11.9. Results - MRI: Two small areas of concern identified in the prostate --Area of interest #1: Location: Anterior periurethral tissue at the apex (series 8, images 21-24) measuring 1.7 cm in greatest dimension. --Area of interest #2: Location: Right posterior peripheral zone in the mid gland/base (series 8, images 16-17) measuring 11 x 4 mm. - PSA level: 11.9 Plan 1. Elevated Psa - Plan to repeat prostate biopsy under anesthesia to target specific areas identified in MRI. - Monitor PSA levels and prostate growth. 12/20/24--Boris is here for telehealth follow-up elevated PSA. He did not tolerate Proscar. He had prostate biopsy done, 02/07/2024-results note benign prostate tissue. PSA 11/14/2023--6.99 ng/mL. I have reviewed repeat PSA--1 -6.35 ng/mL. I have discussed continue to monitor will check an MRI prostate and repeat PSA in 6 months. 11/19/2024--Boris is here for follow-up elevated PSA. He has been on Proscar. He states he has not been compliant with the medication because it causes him to have no energy when he takes it. When he does not take it he feels fine. He did not have his PSA done prior to this visit. Will discontinue Proscar for now follow-up with him to discuss PSA results once he has lab completed. 03/22/2024--Boris has been followed for elevated PSA and BPH. He had prostate biopsy done, 02/07/2024-results note benign prostate tissue. PSA 11/14/2023--6.99 ng/mL. Discussed Proscar 5 mg daily. Follow-up in 8 months PSA prior. 11/25/2023-- Boris is a 58-year-old male who presents telehealth visit for elevated PSA. He was last seen on 09/19/2023. I am discussed in repeat PSA which is 6.99. I have discussed further evaluation with Transrectal Ultrasound guided biopsy of the prostate. Discussed risks to include but not limited to pain, blood in stool, urine and semen, septicemia, need to repeat biopsy. Discussed ultrasound retroperitoneum results--kidneys within normal limits estimated prostate volume 52 mL, prostatic calcifications noted. 09/19/2023?He is present today for an evaluation of elevated PSA. Laboratory review ? PSA ? 02/04/2020 was 4.08 ng/mL and on 07/06/2023 was 5.69 ng/mL. Patient states that in terms of LUTS of prostatitis he feels that the symptoms are improved on tamsulosin. Patient states that he is also concerned about a lump on the shaft of his penis. Examination: currently no abnormal findings noted on genitalia. Prostate examination: smooth, moderately enlarged prostate. Plan:Repeat PSA, US retroperitoneum, Follow-up in 7 weeks. [facility] Medical History Prostate cancer Anesthesia complication Elevated cholesterol BPH (benign prostatic hyperplasia) HTN (hypertension) Surgical History Hx of prostate biopsy Hx of excision of mass Hx of varicose vein ligation and stripping Hx of eye surgery Hx of colonoscopy Social History Housing: Apartment Are you a primary geriatric care manager to a significant other at home: No Do you presently have visiting nurse or other home services: No Patient Tobacco Use Status: Former Tobacco user Tobacco use type: Cigarette e-Cigarette/Vaping Use: Never Used Second Hand Smoke Exposure: No service: No Current occupational status: employed Current occupation: [employer] Current occupational exposures/hazards: No Cognitive needs: No Hearing needs: No Vision needs: No Review of Systems Const All systems reviewed & are unremarkable except as noted in HPI and below Reports no additional complaints Resp Reports no additional complaints GI Reports no additional complaints Reports as per HPI Musc Reports no additional complaints Physical Exam Telemedicine evaluation Appropriate responses Regular breathing rate and rhythm HEENT Head: Yes normal to inspection Ears: hearing grossly normal bilaterally Eyes General: appearance normal, both eyes and all related structures Neck Neck: Yes normal visual inspection Chest Chest palpation & inspection: normal inspection of the chest Resp Effort & Inspection: normal respiratory effort and able to speak in complete sentences Telehealth Telehealth Telehealth Platform: [employer] Location of provider rendering services: practice address Location of patient: address on file Patient Identification confirmed using: Name, : Yes Telehealth method: voice only Patient verbally consented to treatment: Yes Patient verbally consented to billing insurance company: Yes Patient informed of any privacy concerns related to visit: Yes Minutes spent on Phone/Video with Pt.: 15 Assessment & Plan Assessment & Plan (1) Hormone sensitive prostate cancer: Code(s): C61 - Malignant neoplasm of prostate; Z19.1 - Hormone sensitive malignancy status Category: Medical Plan Plan Prolaris Continue finasteride Patient Instructions: This note is constructed using voice recognition software. While every effort has been made to ensure accuracy nightman errors may have been included. Imaging studies, laboratory and physical exam results were discussed and reviewed in detail. No major barriers to patient understanding were identified. An opportunity to ask questions regarding the treatment plan was provided. All questions were answered. The patient expressed understanding and agreement with the above treatment plan. The patient is aware they should contact our office by phone for worsening of their current condition or the appearance of new urologic symptoms. Compliance is encouraged with any medications and followup testing that is ordered. It is a privilege to participate in the urologic care of your patient. If you have any questions or concerns regarding treatment for the above conditions, or other urologic issues, please do not hesitate to contact me. The office telephone contact is [phone]. Sincerely, Dr Josue Sal MD, [facility] - Urology Compassionate Specialist Care for the Genitourinary System Coding Level of Care Code Tele Est Pt Level 4 (97579) Complex EM visit Add On G2211 Diagnoses Hormone sensitive prostate cancer C61; Z19.1
--- OUTSIDE RECORDS SUMMARY | 2025-09-11 17:11 | XMS_ITS | Patient Health Record ---
Author Organization [facility] Address [address] [place] [address] Care Team Providers Care Dump Truck Driver Name Role Phone ALAN HENDRICKSON Primary Care Provider Milton Jimenez [phone] Allergies No Known Allergies Reason For Referral No Information Medications Medication SIG (Take, Route, Frequency, Duration) Notes Start Date End Date Status amLODIPine Besylate 2.5 MG TAKE 1 TABLET BY MOUTH DAILY. Oral; Duration: 30 Active Atorvastatin Calcium 10 MG 1 tablet Oral ly Once a week Active Chlorthalidone 25 MG TAKE ONE TABLET BY MOUTH EVERY DAY Oral; Duration: 30 Active Vitamin D3 50 MCG (1999) TAKE 1 TABLE T BY MOUTH DAILY. Oral; Duration: 30 Active Lisinopril 5 MG 1 tablet [...] Problem Status W/U Status Risk Notes Problem Screening for malignant neoplasm of colon (587098191) Encounter for screening for malignant neoplasm of colon (Z12.11) Active confirmed Problem History of adenomatous polyp of colon (109810048) History of adenomatous polyp of colon (Z86.010) Active confirmed Problem History of polyp of colon (situation) (680945832) Personal history of colonic polyps (Z86.010) Active confirmed Problem Diverticular disease of colon (800655616) Diverticulosis of large intestine without perforation or abscess without bleeding (K57.30) Active confirmed Problem Preprocedural examination (038248884143548) Preprocedural examination (Z01.818) Active confirmed Problem Family History of Cancer of Colon (Situation) (406572149) Family history of colon cancer (Z80.0) Active confirmed Plan Of Treatment Future Test Test Name Order Date COLONOSCOPY 09/14/2011 COLONOSCOPY 03/07/2018 COLONOSCOPY 12/13/2023 Insurance Providers Payer Name Payer Address Payer Phone Subscriber Number Group Number Insured Name Patient Relationship to Insured Coverage Start Date Coverage End Date [facility] [address] [place] [phone] [id number] JESSICA WALTERS Self - patient is the insured Medical (General) History Medical History History ICD Code Denies [place],DM,CVA,Lung disease,renal dise ase HTN Colonoscopy 11/2011--1 small [...]
--- OUTSIDE RECORDS SUMMARY | 2025-09-11 17:11 | XMS_ITS | Patient Health Record ---
Author Organization [facility] Address [address] [place] [address] Care Team Providers Care Front Desk Auxiliary Name Role Phone Shimon Griffin Primary Care Provider Unabaltazar glenda Frederick Lei Unavailable [phone] Allergies No Known Allergies Reason For Referral [...] Insured Coverage Start Date Coverage End Date [facility] [address] [place] [address] [phone] [id number] Boris Stack Self - patient is the insured Medical (General) History Medical History History ICD Code high blood pressure varicose veins Cholesterol Prostate conditions -enlarged Surgical History Surgery Date(Month/Year) laser treatment for varicose veins
== END 2025-09-11 14:44 | disposition home or self-care (01) ==
LOC: HO.HUSH 13:59
PROVIDERS: PCP Nurse Practitioner Family; Visit Provider Urology
DX: C61 Malignant neoplasm of prostate (principal); Z19.1 Hormone sensitive malignancy status
CPT/HCPCS: 99024